=== PATIENT | female | born 1990 | race Caucasian/White ===

== ENCOUNTER 2019-02-22 16:57 | Emergency (ER) | payer SELFPAY ==
[~2019-02-22] VITALS: Ht 175.3 cm; Wt 88.5 kg
--- OUTSIDE RECORDS SUMMARY | 2019-02-22 17:03 | XMS REPORT ---
Author Author FE NAVARRETE [employer] Address Unknown Phone Unavailable Care Team Providers Care Shopping Centre Manager Name Role Phone FE NAVARRETE CP Unavailable Allergies, Adverse Reactions, Alerts Substance Reaction Event Type N.K.D.A. Info Not Available Non Drug Allergy Problems Problem Type Condition Code Onset Dates Condition Status Problem Other specified symptom associated with female genital organs 625.8 Active Problem Other, multiple, and unspecified sites, insect bite, nonvenomous, infected 919.5 Active Problem Leukorrhea, not specified as infective 623.5 Active Problem Unspecified otalgia 388.70 Active Problem Screening examination for venereal disease V74.5 Active Problem Encounter for dental examination Z01.20 Active Problem Screening for malignant neoplasm of the cervix V76.2 Active Problem Unspecified breast screening V76.10 Active Problem Unspecified vaginitis and vulvovaginitis 616.10 Active Problem Cellulitis and abscess of unspecified site 682.9 Active Assessment Encounter for dental examination Z01.20 Active Problem Dysfunction of Eustachian tube 381.81 Active Problem Allergic rhinitis, cause unspecified 477.9 Active Problem Urinary frequency 788.41 Active Medications No Known Medications Procedures Procedure Coding System Code Date INTRAORL-PERIAPICAL EA ADD FILM CPT-4 D0230 Sep 03, 2016 INTRAORL-PERIAPICAL EA ADD FILM CPT-4 D0230 Sep 03, 2016 INTRAORL-PERIAPICAL 1 FILM 84335 CPT-4 D0220 Sep 03, 2016 Unerupted Tooth CPT-4 C0028 Sep 03, 2016 Unerupted Tooth CPT-4 C0028 Sep 03, 2016 Unerupted Tooth CPT-4 C0028 Sep 03, 2016 PANORAMIC FILM SEE ALSO CODE 40850 CPT-4 D0330 Sep 03, 2016 BITEWINGS - FOUR FILMS CPT-4 D0274 Sep 03, 2016 Unerupted Tooth CPT-4 C0028 Sep 03, 2016 PROPHYLAXIS - ADULT CPT-4 D1110 Sep 03, 2016 Vital Signs Date/Time: Sep 03, 2016 Blood Pressure Diastolic 69 mmHg Blood Pressure Systolic 116 mmHg Results No Known Results Summary Purpose eClinicalWorks Submission
--- OUTSIDE RECORDS SUMMARY | 2019-02-22 17:03 | XMS REPORT ---
Author Author RYLAN ARORA [facility] Address [address] [place] [address] Care Team Providers Care Electrologist Name Role Phone RYLAN ARORA Unavailable PROBLEMS Type Condition ICD9-CM Code [id number] Code Onset Dates Condition Status SNOMED Code Problem Encounter for dental examination Z01.20 Active 969349709 ALLERGIES No Known Allergies SOCIAL HISTORY Never Assessed PLAN OF CARE Activity Details Follow Up 2 - 3 Days, prn Reason: VITAL SIGNS Height 70 in 2017-02-11 Weight 178.3 lbs 2017-02-11 Temperature 98.2 degrees Fahrenheit 2017-02-11 Heart Rate 78 bpm 2017-02-11 Respiratory Rate 20 2017-02-11 BMI 25.58 kg/m2 2017-02-11 Blood pressure systolic 110 mmHg 2017-02-11 Blood pressure diastolic 80 mmHg 2017-02-11 MEDICATIONS Medication Instructions Dosage Frequency Start Date End Date Duration Status Amoxicillin 500 mg Orally 3 times a day 1 capsule 8h Jan, Jan, 07 days Active RESULTS No Results PROCEDURES No Known procedures IMMUNIZATIONS No Known Immunizations
--- OUTSIDE RECORDS SUMMARY | 2019-02-22 17:03 | XMS REPORT ---
Author Author ARRON ARREDONDO Organization [employer] Address Unknown Phone Unavailable Care Team Providers Care Lieutenant/Deputy Name Role Phone ARRON ARREDONDO CP Unavailable Allergies No Known Allergies Problems Problem Type Condition ICD-9 Code Onset Dates Condition Status Problem Urinary frequency 788.41 Active Problem Leukorrhea, not specified as infective 623.5 Active Problem Other specified symptom associated with female genital organs 625.8 Active Problem Screening examination for venereal disease V74.5 Active Problem Unspecified vaginitis and vulvovaginitis 616.10 Active Problem Unspecified otalgia 388.70 Active Problem Unspecified breast screening V76.10 Active Problem Other, multiple, and unspecified sites, insect bite, nonvenomous, infected 919.5 Active Problem Cellulitis and abscess of unspecified site 682.9 Active Problem Screening for malignant neoplasm of the cervix V76.2 Active Assessment Dental examination V72.2 Active Problem Dysfunction of Eustachian tube 381.81 Active Problem Allergic rhinitis, cause unspecified 477.9 Active Medications No Known Medications Procedures Procedure Coding System Code Date INTRAORL-PERIAPICAL 1 FILM 66315 CPT-4 D0220 June 28, 2015 LTD ORAL EVALUATION - PROBLEM FOCUS CPT-4 D0140 June 28, 2015 Results No Known Results Summary Purpose eClinicalWorks Submission
--- OUTSIDE RECORDS SUMMARY | 2019-02-22 17:03 | XMS REPORT ---
Author Author TIM GRANT [facility] Address [address] [place] [address] Care Team Providers Care Wreath Machine Tender Name Role Phone TIM GRANT Unavailable PROBLEMS Unknown Problems ALLERGIES No Known Allergies ENCOUNTERS Encounter Location Date Diagnosis [facility] [id number] [place] [phone] Sep, Acute right-sided low back pain, with sciatica presence unspecified M54.5 [facility] [id number] [place] [address]- [address] Jan, Acute non-recurrent frontal sinusitis J01.10 [facility] [id number] [place] [phone] Sep, Encounter for dental examination Z01.20 [facility] [id number] [place] [phone] Jun, Dental examination V72.2 [facility] [id number] [place] [address]- 9779 Mar, [facility] [id number] [place] [address]59- 1225 Mar, [facility] [id number] [place] [address]02- 1221 Dec, [facility] [id number] [place] [address]- 1604 Dec, [facility] [id number] [place] [address] 18397- 7941 Dec, [facility] [id number] [place] [phone] Dec, [facility] [address] [id number] [place] [address] Dec, [facility] [place] [facility] [address] [id number] [place] [address] Dec, [facility] [place] [facility] [address] [id number] [place] [address] Nov, [facility] [place] [facility] [address] [id number] [place] [address] Nov, [facility] [place] [facility] [address] [id number] [place] [address] April, [facility] [place] [facility] [address] [id number] [place] [address] April, [facility] [place] [facility] [address] [id number] [place] [address] April, [facility] [place] [facility] [address] [id number] [place] [address] April, [facility] [place] [facility] [address] [id number] [place] [address] Mar, [facility] [place] [facility] [address] [id number] [place] [address] Mar, [facility] [place] [facility] [address] [id number] [place] [address] Sep, [facility] [place] [facility] [address] [id number] [place] [address] 24 Sep, 2013 [facility] [place] [facility] [address] [id number] [place] [address] 16 Sep, 2013 [facility] [place] [facility] [address] [id number] [place] [address] 13 Sep, 2013 [facility] [place] [facility] [address] [id number] [place] [address] 10 Sep, 2013 [facility] [place] [facility] [address] [id number], [place] [address] 10 Sep, 2013 [facility] [address] [facility] [id number] [place] [address] Aug, [facility] [address] [facility] [id number], [place] [address] Jun, [facility] [address] [facility] [id number], [place] [address] Jun, [facility] [address] [facility] [id number], [place] [address] Nov, [facility] [address] [facility] [id number] [place] [address] Nov, [facility] [address] [facility] [id number][place] [address] Oct, [facility] [address] [facility] [id number], [place] [address] Oct, [facility] [address] [facility] [id number], [place] [address] Sep, [facility] [address] [facility] [id number], [place] [address] Sep, [facility] [address] [facility] [id number], [place] [address] Sep, [facility] [address] [facility] [id number], [place] [address] 30 Jan, 2012 [facility] [address] [facility] [id number], [place] [address] 28 Jan, 2012 [facility] [address] [facility] [id number], [place] [address] 14 Jan, 2012 [facility] [address] [facility] [id number], [place] [address] 10 Jan, 2012 [facility] [address] [facility] [id number], [place] [address] 10 Jan, 2012 IMMUNIZATIONS No Known Immunizations SOCIAL HISTORY Never Assessed REASON FOR VISIT pain, back- States lower back pain on right side started yessusannah Marie RN PLAN OF CARE Activity Details Follow Up prn Reason: VITAL SIGNS Height 70 in 2018-10-01 Weight 193 lbs 2018-10-01 Temperature 98.0 degrees Fahrenheit 2018-10-01 Heart Rate 70 bpm 2018-10-01 Respiratory Rate 18 2018-10-01 BMI 27.69 kg/m2 2018-10-01 Blood pressure systolic 118 mmHg 2018-10-01 Blood pressure diastolic 74 mmHg 2018-10-01 MEDICATIONS Medication Instructions Dosage Frequency Start Date End Date Duration Status Ibuprofen 800 MG Orally Three times a day 1 tablet with food or milk as needed 8h Sep, Oct, 10 days Active Cyclobenzaprine HCl 10 mg Orally qhs 1 tablet as needed Sep, Oct, 10 days Active RESULTS Name Result Date Reference Range UA LONG DIP (IN HOUSE) 2018-10-01 Lot # [id number] Exp date 06/2019 Clarity clear Color yellow Odor none GLU negative HELLEN negative KET Trace SG >1.030 BLO negative pH 6.0 Protein Negative URO 0.2 NIT negativee KAVYA Negative Lot # Exp date PROCEDURES Procedure Date Ordered Result Body Site URINALYSIS, AUTO, W/O SCOPE Oct 01, 2018 INSTRUCTIONS MEDICATIONS ADMINISTERED No Known Medications MEDICAL (GENERAL) HISTORY Type Description Date Surgical History No Surgical history information
--- OUTSIDE RECORDS SUMMARY | 2019-02-22 17:03 | XMS REPORT | Continuity of Care Document ---
Author Author [facility] Address Unknown Phone Unavailable Allergies There is no data. Medications There is no data. Problems Date Dx Coded Attending Type Code Diagnosis Diagnosed By 02/09/2012 682.9 CELLULITIS AND ABSCESS OF UNSPECIFIED SITES 02/09/2012 MIKE MUNROE APRN R 682.9 CELLULITIS AND ABSCESS OF UNSPECIFIED SITES 02/09/2012 682.9 CELLULITIS AND ABSCESS OF UNSPECIFIED SITES 02/09/2012 PORTER MUNROE APRNIA R 682.9 CELLULITIS AND ABSCESS OF UNSPECIFIED SITES 02/09/2012 JAMA WILDE, SHY A 682.9 CELLULITIS AND ABSCESS OF UNSPECIFIED SITES 02/09/2012 OUMAR YUN APRNIDI A 682.9 CELLULITIS AND ABSCESS OF UNSPECIFIED SITES 02/09/2012 PORTER MUNROE APRNIA R 682.9 CELLULITIS AND ABSCESS OF UNSPECIFIED SITES 02/13/2012 919.5 INSECT BITE INFECTED 02/13/2012 PORTER MUNROE APRNIA R 919.5 INSECT BITE INFECTED 02/13/2012 919.5 INSECT BITE INFECTED 02/13/2012 PORTER MUNROE APRNIA R 919.5 INSECT BITE INFECTED 02/13/2012 JAMA APRN, SHY A 919.5 INSECT BITE INFECTED 02/13/2012 JAMAGUERRERO WILDE, SHY A 919.5 INSECT BITE INFECTED 02/13/2012 PORTER MUNROE APRNIA R 919.5 INSECT BITE INFECTED 09/05/2012 616.10 VAGINITIS AND VULVOVAGINITIS UNSPECIFIED 09/05/2012 V74.5 STD SCREEN 09/05/2012 PORTER MUNROE APRNIA R 616.10 VAGINITIS AND VULVOVAGINITIS UNSPECIFIED 09/05/2012 PORTER MUNROE APRNIA R V74.5 STD SCREEN 09/05/2012 616.10 VAGINITIS AND VULVOVAGINITIS UNSPECIFIED 09/05/2012 V74.5 STD SCREEN 09/05/2012 SHANEKA WILDE, MIKE R 616.10 VAGINITIS AND VULVOVAGINITIS UNSPECIFIED 09/05/2012 ZOË MUNROE APRNRICIA R V74.5 STD SCREEN 09/05/2012 JAMA CHANNELER, SHY A 616.10 VAGINITIS AND VULVOVAGINITIS UNSPECIFIED 09/05/2012 JAMA APRN, SHY A V74.5 STD SCREEN 09/05/2012 JAMA CHANNELER, SHY A 616.10 VAGINITIS AND VULVOVAGINITIS UNSPECIFIED 09/05/2012 JAMAGUERRERO WILDE, SHY A V74.5 STD SCREEN 09/05/2012 ZOË MUNROE APRNRICIA R 616.10 VAGINITIS AND VULVOVAGINITIS UNSPECIFIED 09/05/2012 ZOË MUNROE APRNRICIA R V74.5 STD SCREEN 11/28/2012 PORTER MUNROE APRNIA R 381.81 EUSTACHIAN TUBE DYSFUNCTION 11/28/2012 PORTER MUNROE APRNIA R 477.9 ALLERGIC RHINITIS 11/28/2012 381.81 EUSTACHIAN TUBE DYSFUNCTION 11/28/2012 477.9 ALLERGIC RHINITIS 11/28/2012 ZOË MUNROE APRNRICIA R 381.81 EUSTACHIAN TUBE DYSFUNCTION 11/28/2012 ZOË MUNROE APRNRICIA R 477.9 ALLERGIC RHINITIS 11/28/2012 JAMAOUMAR Chris APRNIDI A 381.81 EUSTACHIAN TUBE DYSFUNCTION 11/28/2012 JAMAOUMAR Chris APRNIDI A 477.9 ALLERGIC RHINITIS 11/28/2012 JAMADot WILDE SHY A 381.81 EUSTACHIAN TUBE DYSFUNCTION 11/28/2012 JAMADot WILDE SHY A 477.9 ALLERGIC RHINITIS 11/28/2012 SHANEKA WILDE MIKE R 381.81 EUSTACHIAN TUBE DYSFUNCTION 11/28/2012 ZOË MUNROE APRNRICIA R 477.9 ALLERGIC RHINITIS 06/03/2013 388.70 OTALGIA 06/03/2013 ZOË MUNROE APRNRICIA R 388.70 OTALGIA 06/03/2013 OUMAR YUN APRNIDI A 388.70 OTALGIA 06/03/2013 JAMA WILDE SHY A 388.70 OTALGIA 06/03/2013 SHANEKA CHANNELERMIKE Chris R 388.70 OTALGIA 08/21/2013 MIKE MUNROE APRN R 623.5 LEUKORRHEA NOT SPECIFIED INFECTIVE 08/21/2013 JAMA SUTTONNOUMARSHY A 623.5 LEUKORRHEA NOT SPECIFIED INFECTIVE 08/21/2013 JAMA SUTTONNOUMARSHY A 623.5 LEUKORRHEA NOT SPECIFIED INFECTIVE 08/21/2013 SHANEKA CHANNELERMIKE Chris R 623.5 LEUKORRHEA NOT SPECIFIED INFECTIVE 09/10/2013 JAMA SUTTONSHY Chris A V76.10 BREAST CANCER SCREENING 09/10/2013 JAMA SUTTONSHY Chris A V76.2 CERVICAL CANCER SCREENING (PAP SMEAR) 09/10/2013 JAMA CHANNELERSHY Chris A V76.10 BREAST CANCER SCREENING 09/10/2013 JAMA SUTTONSHY Chris A V76.2 CERVICAL CANCER SCREENING (PAP SMEAR) 09/10/2013 MIKE MUNROE APRN R V76.10 BREAST CANCER SCREENING 09/10/2013 MIKE MUNROE APRN R V76.2 CERVICAL CANCER SCREENING (PAP SMEAR) 04/22/2014 JAMA SUTTONNOUMARSHY A 625.8 OTHER SPECIFIED SYMPTOMS ASSOCIATED WITH FEMALE GENITAL ORGANS 04/22/2014 JAMA SUTTONDot SHY A 788.41 URINARY FREQUENCY 04/22/2014 MIKE MUNROE APRN R 625.8 OTHER SPECIFIED SYMPTOMS ASSOCIATED WITH FEMALE GENITAL ORGANS 04/22/2014 MIKE MUNROE APRN R 788.41 URINARY FREQUENCY Procedures Code Description [place] [address] CULTURE UROGENITAL 09/10/2013 41534 GC/CHLAM PROBE (STATE) 09/10/2013 95237 PAP SMEAR 09/10/2013 Q0091 PAP SMEAR OBTAIN SMEAR 09/10/2013 34770 TRICHOMONAS (IN-HOUSE) 09/10/2013 81721 UA W/ CULTURE IF INDICATED 04/22/2014 73205 TRICHOMONAS (IN-HOUSE) 12/08/2014 54622 CULTURE UROGENITAL 12/08/2014 49723 GC/CHLAM PROBE (STATE) 12/08/2014 Results There is no data. Encounters ACCT No. Visit Date/Time Discharge Status Pt. Type Provider Facility Loc./Unit Complaint [id number] 12/08/2014 15:29:00 12/08/2014 23:59:59 CLS Outpatient MIKE MUNROE APRN [id number] 04/22/2014 10:59:00 04/22/2014 23:59:59 CLS Outpatient SHY YUN APRN [id number] 09/10/2013 13:33:00 09/10/2013 23:59:59 CLS Outpatient SHY YUN APRN [id number] 08/21/2013 12:01:00 08/21/2013 23:59:59 CLS Outpatient MIKE MUNROE APRN [id number] 11/28/2012 16:29:00 11/28/2012 23:59:59 CLS Outpatient MIKE MUNROE APRN [id number] 09/05/2012 13:31:00 09/05/2012 23:59:59 CLS Outpatient [id number] 06/03/2013 14:03:00 Document Registration [id number] 02/02/2019 11:00:00 02/02/2019 23:59:59 CLS Outpatient MAURIZIO [facility]
--- NOTE | 2019-02-22 17:28 | ED GI ---
General Chief Complaint: Rect Problems Stated Complaint: BLOOD IN STOOL Source of Information: Patient Exam Limitations: No Limitations History of Present Illness Date Seen by Provider: Feb 22, 2019 Time Seen by Provider: 17:25 Initial Comments To ER from home per private vehicle with reports of chronic diarrhea for several months. She states her diarrhea is always water and only occasionally does she have a formed stool. Today she had some lower abdominal cramping and bright red blood in the toilet. She states that first, when she looked in the toilet it reminded her of when she's been on her menstrual cycle. She states the blood was very bright. She has no rectal pain now nor has she ever. Has no abdominal pain currently. No history of inflammatory bowel disease. Timing/Duration: 1-2 Days Severity/Quality: Moderate Location: Generalized Abdomen Radiation: No Radiation Activities at Onset: None Allergies and Home Medications Allergies Coded Allergies: No Known Drug Allergies (Unverified , 02/22/19) Patient Home Medication List Home Medication List Reviewed: Yes Review of Systems Review of Systems Constitutional: see HPI EENTM: No Symptoms Reported Respiratory: No Symptoms Reported Cardiovascular: No Symptoms Reported Gastrointestinal: See HPI, Abdominal Pain, Diarrhea, Rectal Bleeding Genitourinary: No Symptoms Reported Musculoskeletal: no symptoms reported Skin: no symptoms reported Psychiatric/Neurological: No Symptoms Reported Endocrine: No Symptoms Reported Hematologic/Lymphatic: No Symptoms Reported Past Macqsef-Doahdj-Civxjt Hx Patient Social History Recent Foreign Travel: No Contact w/Someone Who Travel: No Physical Exam Vital Signs Vital Signs - First Documented 02/22/19 17:24 Temp 98.9 Pulse 85 Resp 16 B/P (MAP) 128/80 (96) Pulse Ox 99 O2 Delivery Room Air Capillary Refill : Height/Weight/BMI Height: '" Weight: lbs. oz. kg; BMI Method: General Appearance: WD/WN, no apparent distress HEENT: PERRL/EOMI, normal ENT inspection Neck: non-tender, full range of motion Respiratory: no respiratory distress, no accessory muscle use Gastrointestinal: normal bowel sounds, non tender, soft Rectal: other (rectal exam done with when the RN at the bedside. There is no obvious external hemorrhoid, no fissure visualized. No visible blood at the rectum.) Genital/Rectal: normal rectal exam, normal rectal tone Extremities: normal range of motion, non-tender Neurologic/Psychiatric: alert, normal mood/affect, oriented x 3 Skin: normal color, warm/dry Progress/Results/Core Measures Results/Orders Lab Results Laboratory Tests Test 02/22/19 17:20 Range/Units White Blood Count 6.2 4.3-11.0 10^3/uL Red Blood Count 4.60 4.35-5.85 10^6/uL Hemoglobin 13.9 11.5-16.0 G/DL Hematocrit 41 35-52 % Mean Corpuscular Volume 89 80-99 FL Mean Corpuscular Hemoglobin 30 25-34 PG Mean Corpuscular Hemoglobin Concent 34 32-36 G/DL Red Cell Distribution Width 12.5 10.0-14.5 % Platelet Count 142 130-400 10^3/uL Mean Platelet Volume 12.3 H 7.4-10.4 FL Neutrophils (%) (Auto) 66 42-75 % Lymphocytes (%) (Auto) 26 12-44 % Monocytes (%) (Auto) 7 0-12 % Eosinophils (%) (Auto) 1 0-10 % Basophils (%) (Auto) 0 0-10 % Neutrophils # (Auto) 4.1 1.8-7.8 X 10^3 Lymphocytes # (Auto) 1.6 1.0-4.0 X 10^3 Monocytes # (Auto) 0.4 0.0-1.0 X 10^3 Eosinophils # (Auto) 0.0 0.0-0.3 10^3/uL Basophils # (Auto) 0.0 0.0-0.1 10^3/uL Erythrocyte Sedimentation Rate 5 0-20 MM/HR Sodium Level 139 135-145 MMOL/L Potassium Level 4.0 3.6-5.0 MMOL/L Chloride Level 107 98-107 MMOL/L Carbon Dioxide Level 24 21-32 MMOL/L Anion Gap 8 5-14 MMOL/L Blood Urea Nitrogen 9 7-18 MG/DL Creatinine 0.84 0.60-1.30 MG/DL Estimat Glomerular Filtration Rate > 60 BUN/Creatinine Ratio 11 Glucose Level 90 70-105 MG/DL Calcium Level 9.0 8.5-10.1 MG/DL Corrected Calcium 8.7 8.5-10.1 MG/DL Total Bilirubin 0.4 0.1-1.0 MG/DL Aspartate Amino Transf (AST/SGOT) 15 5-34 U/L Alanine Aminotransferase (ALT/SGPT) 10 0-55 U/L Alkaline Phosphatase 50 40-136 U/L C-Reactive Protein High Sensitivity 0.06 0.00-0.50 MG/DL Total Protein 7.3 6.4-8.2 GM/DL Albumin 4.4 3.2-4.5 GM/DL Serum Test, Qualitative NEGATIVE NEGATIVE My Orders Orders - CELIO OLSEN APRN Cbc With Automated Diff (02/22/19 17:18) Comprehensive Metabolic Panel (02/22/19 17:18) Erythrocyte Sedimentation Rate (02/22/19 17:18) Hs C Reactive Protein (02/22/19 17:18) Iv Heplock-Insert (Order) (02/22/19 17:18) Hcg,Qualitative Serum (02/22/19 17:18) Ct Abdomen/Pelvis W (02/22/19 17:18) Vital Signs/I&O 02/22/19 17:24 Temp 98.9 Pulse 85 Resp 16 B/P (MAP) 128/80 (96) Pulse Ox 99 O2 Delivery Room Air Diagnostic Imaging Diagonstic Imaging: CT Plain Films/CT/US/NM/MRI: abdomen, pelvis Comments NAME: SOFÍA SOLIS MED REC#: [id number] PT STATUS: REG ER : 1990 PHYSICIAN: CELIO OLSEN APRN ADMIT DATE: 02/22/19/ER Draft Date of Exam:02/22/19 CT ABDOMEN/PELVIS W PROCEDURE: CT abdomen and pelvis with contrast. TECHNIQUE: Multiple contiguous axial images were obtained through the abdomen and pelvis after administration of intravenous contrast. Auto Exposure Controls were utilized during the CT exam to meet ALARA standards for radiation dose reduction. INDICATION: Bloody stools. FINDINGS: There is long segment spasm with mild edema noted throughout the colon from mid transverse colon throughout to the rectum. There is a moderate amount of stool in the cecum and descending colon. The appendix is not dilated. There is some adjacent mesenteric edema noted. The small bowel is not distended. No evidence of thickening of small bowel. The stomach is not dilated. There is no free air or free fluid demonstrated. No adenopathy of pathologic size. There is a complex thickwalled multiseptated mass in the left adnexa, measuring 6 cm, which does show some enhancement of the wall. There is a small amount of fluid in the cul-de-sac. There is a round cyst in the right adnexa, measuring 1.6 cm without significant enhancement. The uterus is not enlarged. There is lymph node noted posteriorly in the perirectal region on the left, measuring 1.7 x 1.0 cm. No bony lesion is demonstrated. The liver appears normal. Gallbladder and bile ducts are normal. Pancreas and spleen are normal. The adrenal glands and kidneys are normal. There is normal enhancement of the abdominal organs and vessels. Vessels are normal. No bony abnormalities. IMPRESSION: 1. Long segment spasm with some thickening of the bowel wall from the mid transverse colon to the rectum with some adjacent mesenteric edema, likely representing colitis. No evidence of free air. 2. There is a complex pelvic mass with thick wall and septation in the left adnexa measuring upwards of 6 cm. This could well be ovarian in nature. Malignancy is definitely in the differential. Chronic inflammatory changes could not be excluded. There is an enlarged lymph node in the perirectal region just posterior to this mass, measuring 1.7 cm. There is a trace of free fluid in the cul-de-sac. 3. The appendix is normal. Dictated on workstation # [id number] Dict: 02/22/19 1849 Trans: 02/22/19 185 LOCATED WITHIN [facility] [id number] Interpreted by: JOZEF KHAN MD Electronically signed by: Departure Impression Primary Impression: Colitis Additional Impression: left adnexal mass Disposition: 01 HOME, SELF-CARE Condition: Stable Departure-Patient Inst. Decision time for Depature: 19:23 Referrals: MARY NELSON MD, MICHAEL S DO HIGGINBOTHAM, DENNIS G MD NO,LOCAL PHYSICIAN (PCP) Primary Care Physician JENNYFER GAMEZ DO Patient Instructions: NO INSTRUCTIONS GIVEN Add. Discharge Instructions: 1. Take the antibiotics and steroids as directed 2. Follow-up with one of the gynecologists listed to obtain an ultrasound of the structure on or around the left ovary. You will also need to follow up with primary care to ensure that your episodes of diarrhea and bloody stools resolve. Call your doctor tomorrow to make an appointment. All discharge instructions reviewed with patient and/or family. Voiced understanding. Scripts Metronidazole (Metronidazole) 500 Mg Tablet 500 MG PO TID, #21 TAB Prov: CELIO OLSEN APRN 02/22/19 Prednisone (Prednisone) 20 Mg Tab 40 MG PO DAILY, #8 EACH Prov: CELIO OLSEN APRN 02/22/19 Sulfamethoxazole/Trimethoprim (Bactrim Ds Tablet) 1 Each Tablet 1 EACH PO BID, #14 TAB Prov: CELIO OLSEN APRN 02/22/19 CELIO OLSEN APRN Feb 22, 2019 17:28
[2019-02-22 17:32] LABS: BASOPHILS % (AUTO) 0 % (0-10); EOSINOPHILS % (AUTO) 1 % (0-10); HEMATOCRIT 41 % (35-52); HEMOGLOBIN 13.9 G/DL (11.5-16.0); LYMPHOCYTES # (AUTO) 1.6 X 10^3 (1.0-4.0); LYMPHOCYTES % (AUTO) 26 % (12-44); MEAN CORPUSCULAR HEMOGLOBIN 30 PG (25-34); MEAN CORPUSCULAR HGB CONC 34 G/DL (32-36); MEAN CORPUSCULAR VOLUME 89 FL (80-99); MEAN PLATELET VOLUME 12.3 FL (7.4-10.4); MONOCYTES # (AUTO) 0.4 X 10^3 (0.0-1.0); MONOCYTES % (AUTO) 7 % (0-12); NEUTROPHILS # (AUTO) 4.1 X 10^3 (1.8-7.8); NEUTROPHILS % (AUTO) 66 % (42-75); PLATELET COUNT 142 10^3/uL (130-400); RED CELL DISTRIBUTION WIDTH 12.5 % (10.0-14.5); WHITE BLOOD COUNT 6.2 10^3/uL (4.3-11.0)
[2019-02-22 17:52] LABS: ALANINE AMINOTRANSFERASE 10 U/L (0-55); ALBUMIN 4.4 GM/DL (3.2-4.5); ALKALINE PHOSPHATASE 50 U/L (40-136); BILIRUBIN,TOTAL 0.4 MG/DL (0.1-1.0); BUN/CREATININE RATIO 11; CARBON DIOXIDE 24 MMOL/L (21-32); CHLORIDE 107 MMOL/L (98-107); CREATININE SERUM 0.84 MG/DL (0.60-1.30); GFR ESTIMATED > 60; GLUCOSE 90 MG/DL (70-105); SODIUM 139 MMOL/L (135-145); TOTAL PROTEIN 7.3 GM/DL (6.4-8.2)
[2019-02-22 18:22] LABS: ERYTHROCYTE SEDIMENTATION RATE 5 MM/HR (0-20)
--- NOTE | 2019-02-22 18:59 | Diagnostic Imaging Report ---
PROCEDURE: CT abdomen and pelvis with contrast. TECHNIQUE: Multiple contiguous axial images were obtained through the abdomen and pelvis after administration of intravenous contrast. Auto Exposure Controls were utilized during the CT exam to meet ALARA standards for radiation dose reduction. INDICATION: Bloody stools. FINDINGS: There is long segment spasm with mild edema noted throughout the colon from mid transverse colon throughout to the rectum. There is a moderate amount of stool in the cecum and descending colon. The appendix is not dilated. There is some adjacent mesenteric edema noted. The small bowel is not distended. No evidence of thickening of small bowel. The stomach is not dilated. There is no free air or free fluid demonstrated. No adenopathy of pathologic size. There is a complex thickwalled multiseptated mass in the left adnexa, measuring 6 cm, which does show some enhancement of the wall. There is a small amount of fluid in the cul-de-sac. There is a round cyst in the right adnexa, measuring 1.6 cm without significant enhancement. The uterus is not enlarged. There is lymph node noted posteriorly in the perirectal region on the left, measuring 1.7 x 1.0 cm. No bony lesion is demonstrated. The liver appears normal. Gallbladder and bile ducts are normal. Pancreas and spleen are normal. The adrenal glands and kidneys are normal. There is normal enhancement of the abdominal organs and vessels. Vessels are normal. No bony abnormalities. IMPRESSION: 1. Long segment spasm with some thickening of the bowel wall from the mid transverse colon to the rectum with some adjacent mesenteric edema, likely representing colitis. No evidence of free air. 2. There is a complex pelvic mass with thick wall and septation in the left adnexa measuring upwards of 6 cm. This could well be ovarian in nature. Malignancy is definitely in the differential. Chronic inflammatory changes could not be excluded. There is an enlarged lymph node in the perirectal region just posterior to this mass, measuring 1.7 cm. There is a trace of free fluid in the cul-de-sac. 3. The appendix is normal. Dictated by: Dictated on workstation # [id number]
[2019-02-22] MEDS ORDERED: PRD20T PO (19:25)
[2019-02-22] MEDS ORDERED: SULF1TAB35 PO (19:25)
[2019-02-22] MEDS ORDERED: METR-145 PO (19:25)
[2019-02-22] MEDS ORDERED: PANT40TA2 PO (19:34)
[2019-02-22] MEDS ORDERED: TRIM/SULFAMETH 160/800 (SEPTRA DS) TAB PO ONE (19:45)
[2019-02-22] MEDS ORDERED: metroNIDAZOLE 500 MG (FLAGYL) TAB PO ONE (19:45)
[2019-02-22] MEDS ORDERED: predniSONE 20 MG TAB PO ONE (19:45)
[2019-02-22 19:52] VITALS: BP 123/78
== END 2019-02-22 19:52 | disposition home or self-care (01) ==
LOC: EDUNIT# 16:57 → ER 16:59
DX: K52.9 Noninfective gastroenteritis and colitis, unspecified (principal); R19.09 Other intra-abdominal and pelvic swelling, mass and lump
CPT/HCPCS: 36415; 74177; 80053; 84703; 85025; 85652; 86141

== ENCOUNTER 2019-03-27 09:41 | Outpatient (CLI) | payer OTHER ==
[~2019-03-27] VITALS: Ht 175.3 cm; Wt 86.0 kg
[~2019-03-27 09:41] MED LIST: METR-145 PO; PANT40TA2 PO; PRD20T PO; SULF1TAB35 PO
[2019-03-27 09:54] VITALS: BP 111/71
[2019-03-27 10:27] LABS: BASOPHILS % (AUTO) 0 % (0-10); EOSINOPHILS # (AUTO) 0.1 10^3/uL (0.0-0.3); EOSINOPHILS % (AUTO) 1 % (0-10); HEMATOCRIT 42 % (35-52); LYMPHOCYTES # (AUTO) 1.5 X 10^3 (1.0-4.0); LYMPHOCYTES % (AUTO) 28 % (12-44); MEAN CORPUSCULAR HEMOGLOBIN 30 PG (25-34); MEAN CORPUSCULAR HGB CONC 34 G/DL (32-36); MEAN CORPUSCULAR VOLUME 91 FL (80-99); MONOCYTES # (AUTO) 0.5 X 10^3 (0.0-1.0); MONOCYTES % (AUTO) 10 % (0-12); NEUTROPHILS # (AUTO) 3.2 X 10^3 (1.8-7.8); NEUTROPHILS % (AUTO) 61 % (42-75); PLATELET COUNT 143 10^3/uL (130-400); RED CELL DISTRIBUTION WIDTH 12.3 % (10.0-14.5); WHITE BLOOD COUNT 5.3 10^3/uL (4.3-11.0)
== END 2019-03-27 12:00 | disposition home or self-care (01) ==
LOC: PREOP 09:41
PROVIDERS: ATTEND Obstetrics & Gynecology
DX: Z01.812 Encounter for preprocedural laboratory examination (principal); Z11.2 Encounter for screening for other bacterial diseases; R19.00 Intra-abdominal and pelvic swelling, mass and lump, unspecified site
CPT/HCPCS: 36415; 85025; 86850; 86900; 86901; 87081

== ENCOUNTER 2019-04-02 07:01 | Day surgery (SDC) | payer OTHER ==
[~2019-04-02] VITALS: Ht 175.3 cm; Wt 86.0 kg
[2019-04-02] VITALS (13 sets, daily range): BP systolic 21–138; BP diastolic 54–92
--- OUTSIDE RECORDS SUMMARY | 2019-04-02 07:05 | XMS REPORT ---
Author Author Migration, Doctor Organization [facility] Address Unknown Phone Unavailable Care Team Providers Care Gravel Screener Name Role Phone Migration, Doctor Unavailable Unavailable PROBLEMS Unknown Problems ALLERGIES No Information ENCOUNTERS Encounter Location Date Diagnosis [facility] [id number] [place] [address] 04 Jan, 2019 STD (sexually transmitted disease) A64 and Screen for STD ( sexually transmitted disease) Z11.3 [facility] [id number] [place] [id number] Sep, Acute right-sided low back pain, with sciatica presence unspecified M54.5 [facility] [id number] [place] [address]- 69[address] Jan, Acute non-recurrent frontal sinusitis J01.10 [facility] [id number] [place] [id number] Sep, Encounter for dental examination Z01.20 [facility] [id number] [place] [id number] Jun, Dental examination V72.2 [facility] [address] [address] Mar, [facility] [address] [place] [address]- [address]26 Mar, [facility] [address] [place] [address]1146- 30[address] Dec, [facility] [id number] [place] [address]- 46[address] Dec, [facility] [address] [address] Dec, [facility] [id number] [place] [address]- [address] Dec, [facility] [address] [id number] [place] [address] Dec, [facility] [place] [facility] [address] [id number] [place] [address]26 Dec, [facility] [place] [facility] [address] [id number] [place] [address]657 Nov, [facility] [place] [facility] [address] [id number] [place] [address] 16[address] Nov, [facility] [place] [facility] [address] [id number] [place] [address] April, [facility] [place] [facility] [address] [id number] [place] [address] 0186 April, [facility] [place] [facility] [address] [id number] [place] [address] 2629 April, [facility] [place] [facility] [address] [id number] [place] [address]123 April, [facility] [place] [facility] [address] [id number] [place] [address]245 Mar, [facility] [place] [facility] [address] [id number] [place] [address] 2634 Mar, [facility] [place] [facility] [address] [id number] [address] 24 Sep, 2013 [facility] [place] [facility] [address] [id number], [place] [address] 24 Sep, 2013 [facility] [place] [facility] [address] [id number] [place] [address]- 0969 16 Sep, 2013 [facility] [place] [facility] [address] [id number] [place] [address] 13 Sep, 2013 [facility] [place] [facility] [address] [id number] [place] [address]- 2441 10 Sep, 2013 [facility] [place] [facility] [address] [id number] [place] [address]- 2546 10 Sep, 2013 [facility] [place] [facility] [address] [id number] [place] [address]46 20 Aug, 2013 [facility] [place] [facility] [address] [id number] [place] [address] 2546 Jun, [facility] [place] [facility] [address] [id number] [place] [address] 2546 Jun, [facility] [place] [facility] [address] [id number] [place] [address]- 2546 Nov, [facility] [place] [facility] [address] [id number] [place] [address]- 2546 Nov, [facility] [place] [facility] [address] [id number] [place] [address] 2546 Oct, [facility] [place] [facility] [address] [id number] [place] [address] 2546 Oct, [facility] [place] [facility] [address] [id number] [place] [address]- [address]346 10 Sep, 2012 [facility] [place] [facility] [address] [id number] [place] [address]- 2546 07 Sep, 2012 [facility] [place] [facility] [address] [id number] [place] [address]- 2546 05 Sep, 2012 [facility] [place] [facility] [address] [id number] [place] [address]- 2546 30 Jan, 2012 [facility] [place] [facility] [address] [id number] [place] [address]- 2546 28 Jan, 2012 [facility] [place] [facility] [address] [id number] [place] [address]- 2546 14 Jan, 2012 [facility] [place] [facility] [address] [id number] [place] [address]- 2546 10 Jan, 2012 [facility] [place] [facility] [address] [id number] [place] [address] 8041 Jan, IMMUNIZATIONS No Known Immunizations SOCIAL HISTORY Never Assessed REASON FOR VISIT EMR-[facility] PLAN OF CARE VITAL SIGNS MEDICATIONS No Known Medications RESULTS No Results PROCEDURES No Known procedures INSTRUCTIONS MEDICATIONS ADMINISTERED No Known Medications MEDICAL (GENERAL) HISTORY Type Description Date Surgical History No Surgical history information
--- OUTSIDE RECORDS SUMMARY | 2019-04-02 07:05 | XMS REPORT ---
Author Author Migration, Doctor Organization [facility] Address Unknown Phone Unavailable Care Team Providers Care Hoist Mechanic Name Role Phone Migration, Doctor Unavailable Unavailable PROBLEMS Unknown Problems ALLERGIES No Information ENCOUNTERS Encounter Location Date Diagnosis [facility] [id number] [place] [address] 04 Jan, 2019 STD (sexually transmitted disease) A64 and Screen for STD ( sexually transmitted disease) Z11.3 [facility] [id number] [place], [place] [id number] Sep, Acute right-sided low back pain, with sciatica presence unspecified M54.5 [facility] [id number] [place] [address]- 2665 Jan, Acute non-recurrent frontal sinusitis J01.10 [facility] [address] [place] [address] [id number] Sep, Encounter for dental examination Z01.20 [facility] [id number] [place] [id number] Jun, Dental examination V72.2 [facility] [address], [place] [address] Mar, [facility] [id number] [place] [address]- 4734 Mar, [facility] [id number] [place] [address]16- 9068 Dec, [facility] [id number] [place] [address]10- 0957 Dec, [facility] [address], [place] [address] Dec, [facility] [id number] [place] [address] 15013- 1596 Dec, [facility] [address] [id number] [place] [address]- 8527 Dec, [facility] [place] [facility] [address] [id number] [place] [address]- 4375 Dec, [facility] [place] [facility] [address] [id number] [place] [address]- 4282 Nov, [facility] [place] [facility] [address] [id number] [place] [address]- 5018 Nov, [facility] [place] [facility] [address] [id number] [place] [address]- 8420 April, [facility] [place] [facility] [address] [id number] [place] [address]- 6554 April, [facility] [place] [facility] [address] [id number] [place] [address]- 1336 April, [facility] [place] [facility] [address] [id number] [place] [address]- 6320 April, [facility] [place] [facility] [address] [id number] [place] [address]- 4913 Mar, [facility] [place] [facility] [address] [id number] [place] [address]- 6394 Mar, [facility] [place] [facility] [address] [id number], [place] [address]- 8867 24 Sep, 2013 [facility] [place] [facility] [address] [id number], [place] [address]- 2736 24 Sep, 2013 [facility] [place] [facility] [address] [id number] [place] [address]- 4393 16 Sep, 2013 [facility] [place] [facility] [address] [id number] [place] [address]- 5659 13 Sep, 2013 [facility] [place] [facility] [address] [id number] [place] [address]- 8223 10 Sep, 2013 [facility] [place] [facility] [address] [id number] [place] [address]- 2546 10 Sep, 2013 [facility] [place] [facility] [address] [id number] [place] [address]- 2546 20 Aug, 2013 [facility] [place] [facility] [address] [id number] [place] [address]- 2546 Jun, [facility] [place] [facility] [address] [id number] [place] [address]- 2546 Jun, [facility] [place] [facility] [address] [id number] [place] [address]- 2546 Nov, [facility] [place] [facility] [address] [id number] [place] [address]- 2546 Nov, [facility] [place] [facility] [address] [id number] [place] [address]- 2546 Oct, [facility] [place] [facility] [address] [id number] [place] [address]- 2546 Oct, [facility] [place] [facility] [address] [id number] [place] [address]- 8956 10 Sep, 2012 [facility] [place] [facility] [address] [id number] [place] [address]- 2546 07 Sep, 2012 [facility] [place] [facility] [address] [id number] [place] [address]- 2546 05 Sep, 2012 [facility] [place] [facility] [address] [id number] [place] [address]- 2546 30 Jan, 2012 [facility] [place] [facility] [address] [id number] [place] [address]- 2546 28 Jan, 2012 [facility] [place] [facility] [address] [id number] [place] [address]- 2546 14 Jan, 2012 [facility] [place] [facility] [address] [id number] [place] [address]- 2546 10 Jan, 2012 [facility] [place] [facility] [address] [id number] [place] [address]- 2518 Jan, IMMUNIZATIONS No Known Immunizations SOCIAL HISTORY Never Assessed REASON FOR VISIT EMR-[facility] PLAN OF CARE VITAL SIGNS MEDICATIONS No Known Medications RESULTS No Results PROCEDURES No Known procedures INSTRUCTIONS MEDICATIONS ADMINISTERED No Known Medications MEDICAL (GENERAL) HISTORY Type Description Date Surgical History No Surgical history information
--- OUTSIDE RECORDS SUMMARY | 2019-04-02 07:05 | XMS REPORT ---
Author Author Migration, Doctor Organization [facility] Address Unknown Phone Unavailable Care Team Providers Care Security Patrol Driver Name Role Phone Migration, Doctor Unavailable Unavailable PROBLEMS Type Condition ICD9-CM Code HBM29-EZ Code Onset Dates Condition Status SNOMED Code Problem Adnexal mass N94.9 Active 368709641 Problem Gastroesophageal reflux disease, esophagitis presence not specified K21.9 Active [id number] ALLERGIES No Information ENCOUNTERS Encounter Location Date Diagnosis [place] [address] [address] [place] [id number] Mar, [place] [address] [address] Mar, Diarrhea of presumed infectious origin R19.7 [place] [address] [address] Jan, Gastroesophageal reflux disease, esophagitis presence not specified K21.9 ; Adnexal mass N94.9 and Colitis K52.9 [place] [address] [address] Jan, STD (sexually transmitted disease) A64 and Screen for STD ( sexually transmitted disease) Z11.3 [place] [address] [address] Sep, Acute right-sided low back pain, with sciatica presence unspecified M54.5 [place] [address] [address] Jan, Acute non-recurrent frontal sinusitis J01.10 [facility] [id number] [place] [id number] Sep, Encounter for dental examination Z01.20 [facility] [id number] [place] [id number] Jun, Dental examination V72.2 [facility] [place] [facility] [address] [id number] [place] [address] 14 Mar, 2015 [facility] [place] [facility] [address] [id number] [place] [address] Mar, [facility] [place] [facility] [address] [id number] [place] [address] Dec, [facility] [place] [facility] [address] [id number] [place] [address] Dec, [facility] [place] [facility] [address] [id number] [place] [address] Dec, [facility] [place] [facility] [address] [id number] [place] [address] Dec, [facility] [place] [facility] [address] [id number] [place] [address] Dec, [facility] [place] [facility] [address] [id number] [address] Dec, [facility] [place] [facility] [address] [id number] [place] [address] Nov, [facility] [place] [facility] [address] [id number] [place] [address] Nov, [facility] [place] [facility] [address] [id number] [address] April, [facility] [place] [facility] [address] [id number] [address] April, [facility] [place] [facility] [address] [id number] [place] [address] April, [facility] [place] [facility] [address] [id number] [place] [address] April, [facility] [place] [facility] [address] [id number] [place] [address] Mar, [facility] [place] [facility] [address] [id number] [place] [address] 15 Mar, 2014 [facility] [place] [facility] [address] [id number] [place] [address] 24 Sep, 2013 [facility] [place] [facility] [address] [id number] [place] 24 Sep, 2013 [facility] [place] [facility] [address] [id number] [place] [address] 16 Sep, 2013 [facility] [place] [facility] [address] [id number] [place] [address] 13 Sep, 2013 [facility] [place] [facility] [address] [id number] [place] [address] 10 Sep, 2013 [facility] [place] [facility] [address] [id number] [place] [address] 10 Sep, 2013 [facility] [place] [facility] [address] [id number] [place] [address] 20 Aug, 2013 [facility] [place] [facility] [address] [id number] [place] [address] Jun, [facility] [place] [facility] [address] [id number] [place] [address] Jun, [facility] [place] [facility] [address] [facility] [id number] [place] [address] Nov, [facility] [place] [facility] [address] [id number] [place] [address] Nov, [facility] [place] [facility] [address] [id number] [place] [address] Oct, [facility] [place] [facility] [address] [id number] [place] [address] Oct, [facility] [place] [facility] [address] [facility] [id number] [place] [address] Sep, [facility] [place] [facility] [address] [id number] [place] [address] Sep, [facility] [address] [facility] [id number] [address] Sep, [facility] [address] [place] [address] [id number] [address] 30 Jan, 2012 [facility] [id number] [address] Jan, [facility] [id number] [address] Jan, [facility] [id number] [address] Jan, [facility] [address] [id number] [address] Jan, IMMUNIZATIONS No Known Immunizations SOCIAL HISTORY Never Assessed REASON FOR VISIT [place] [place] VITAL SIGNS MEDICATIONS Medication Instructions Dosage Frequency Start Date End Date Duration Status Metronidazole 500 mg 1 tablet by Oral route 2 times per day for 7 days Sep, Active Acxoxtxo-Ynzwidpdm-FH 3.5-10,000-1 mg-unit/mL-% 2 drop by Otic route 4 times per day for 7 day(s) Jun, Active Keflex 500 mg take 1 capsule (500 mg) by oral route every 6 hours for 10 days Jan, Active RESULTS No Results PROCEDURES No Known procedures INSTRUCTIONS MEDICATIONS ADMINISTERED No Known Medications MEDICAL (GENERAL) HISTORY Type Description Date Surgical History No know Surgical history Hospitalization History ER for bloody stools 01/25/2019
--- OUTSIDE RECORDS SUMMARY | 2019-04-02 07:06 | XMS REPORT | Continuity of Care Document ---
Author Organization Unknown Address Unknown Allergies Active Description Code Type Severity Reaction Onset Reported/Identified Relationship to Patient Clinical Status Yes No Known Drug Allergies [id number] Drug Allergy Unknown N/A 03/27/2019 Medications There is no data. Problems Date [...] INFECTED 02/13/2012 919.5 INSECT BITE INFECTED 02/13/2012 MIKE MUNROE APRN R 919.5 INSECT BITE INFECTED 02/13/2012 JAMA APRN, SHY A 919.5 INSECT BITE INFECTED 02/13/2012 JAMA APRN, SHY A 919.5 INSECT BITE INFECTED 02/13/2012 MIKE MUNROE APRN R 919.5 INSECT BITE INFECTED 09/05/2012 616.10 VAGINITIS AND VULVOVAGINITIS UNSPECIFIED 09/05/2012 V74.5 STD SCREEN 09/05/2012 MIKE MUNROE APRN R 616.10 VAGINITIS AND VULVOVAGINITIS UNSPECIFIED 09/05/2012 MIKE MUNROE APRN R V74.5 STD SCREEN 09/05/2012 616.10 VAGINITIS AND VULVOVAGINITIS UNSPECIFIED 09/05/2012 V74.5 STD SCREEN 09/05/2012 PORTER MUNROE APRNIA R 616.10 VAGINITIS AND VULVOVAGINITIS UNSPECIFIED 09/05/2012 ZOË MUNROE APRNRICIA R V74.5 STD SCREEN 09/05/2012 JAMAOUMAR Chris APRNIDI A 616.10 VAGINITIS AND VULVOVAGINITIS UNSPECIFIED 09/05/2012 JAMAOUMAR Chris APRNIDI A V74.5 STD SCREEN 09/05/2012 JAMAOUMAR Chris APRNIDI A 616.10 VAGINITIS AND VULVOVAGINITIS UNSPECIFIED 09/05/2012 JAMASHY Chris APRN A V74.5 STD SCREEN 09/05/2012 MIKE MUNROE APRN R 616.10 VAGINITIS AND VULVOVAGINITIS UNSPECIFIED 09/05/2012 PORTER MUNROE APRNIA R V74.5 STD SCREEN 11/28/2012 PORTER MUNROE APRNIA R 381.81 EUSTACHIAN TUBE DYSFUNCTION 11/28/2012 PORTER MUNROE APRNIA R 477.9 ALLERGIC RHINITIS 11/28/2012 381.81 EUSTACHIAN TUBE DYSFUNCTION 11/28/2012 477.9 ALLERGIC RHINITIS 11/28/2012 PORTER MUNROE APRNIA R 381.81 EUSTACHIAN TUBE DYSFUNCTION 11/28/2012 PORTER MUNROE APRNIA R 477.9 ALLERGIC RHINITIS 11/28/2012 JAMASHY Chris APRN A 381.81 EUSTACHIAN TUBE DYSFUNCTION 11/28/2012 JAMASHY Chris APRN A 477.9 ALLERGIC RHINITIS 11/28/2012 JAMAOUMAR Chris APRNIDI A 381.81 EUSTACHIAN TUBE DYSFUNCTION 11/28/2012 JAMASHY Chris APRN A 477.9 ALLERGIC RHINITIS 11/28/2012 PORTER MUNROE APRNIA R 381.81 EUSTACHIAN TUBE DYSFUNCTION 11/28/2012 PORTER MUNROE APRNIA R 477.9 ALLERGIC RHINITIS 06/03/2013 388.70 OTALGIA 06/03/2013 PORTER MUNROE APRNIA R 388.70 OTALGIA 06/03/2013 JAMASHY Chris APRN A 388.70 OTALGIA 06/03/2013 OUMAR YUN APRNIDI A 388.70 OTALGIA 06/03/2013 MIKE MUNROE APRN R 388.70 OTALGIA 08/21/2013 SHANEKA PLASTIC INJECTION MOLD MAKERMIKE Chris R 623.5 LEUKORRHEA NOT SPECIFIED INFECTIVE 08/21/2013 JAMA SUTTONNOUMARSHY A 623.5 LEUKORRHEA NOT SPECIFIED INFECTIVE 08/21/2013 JAMA USTTONNOUMARSHY A 623.5 LEUKORRHEA NOT SPECIFIED INFECTIVE 08/21/2013 SHANEKA PLASTIC INJECTION MOLD MAKERMIKE Chris R 623.5 LEUKORRHEA NOT SPECIFIED INFECTIVE 09/10/2013 JAMA SUTTONNOUMARSHY A V76.10 BREAST CANCER SCREENING 09/10/2013 JAMA SUTTONDot SHY A V76.2 CERVICAL CANCER SCREENING (PAP SMEAR) 09/10/2013 JAMA SUTTONDot SHY A V76.10 BREAST CANCER SCREENING 09/10/2013 JAMA SHY WILDE A V76.2 CERVICAL CANCER SCREENING (PAP SMEAR) [...] MIKE MUNROE APRN R 788.41 URINARY FREQUENCY 02/24/2019 CELIO OLSEN APRN Ot K52.9 NONINFECTIVE GASTROENTERITIS AND COLITIS 02/24/2019 CELIO OLSEN APRN Ot R19.09 OTHER INTRA-ABDOMINAL AND PELVIC SWELLIN 02/24/2019 CELIO OLSEN APRN Ot R19.7 DIARRHEA, UNSPECIFIED Procedures Code Description [place] [address] CULTURE UROGENITAL 09/10/2013 51104 GC/CHLAM PROBE (STATE) 09/10/2013 66856 PAP SMEAR 09/10/2013 Q0091 PAP SMEAR OBTAIN SMEAR 09/10/2013 61686 TRICHOMONAS (IN-HOUSE) 09/10/2013 38323 UA W/ CULTURE IF INDICATED 04/22/2014 03931 TRICHOMONAS (IN-HOUSE) 12/08/2014 03964 CULTURE UROGENITAL 12/08/2014 57851 GC/CHLAM PROBE (STATE) 12/08/2014 Results Test Result Range HSV 1/2 IGG,TYPE SPECIFIC AB HERPESELECT - 02/02/19 11:46 HSV 1 IGG, TYPE SPECIFIC AB 26.30 index NRG HSV 2 IGG, TYPE SPECIFIC AB <0.90 index NRG Complete blood count (CBC) with automated white blood cell (WBC) differential - 02/22/19 17:20 Blood leukocytes automated count (number/volume) 6.2 10*3/uL 4.3-11.0 Blood erythrocytes automated count (number/volume) 4.60 10*6/uL 4.35-5.85 Venous blood hemoglobin measurement (mass/volume) 13.9 g/dL 11.5-16.0 Blood hematocrit (volume fraction) 41 % 35-52 Automated erythrocyte mean corpuscular volume 89 [foz_us] 80-99 Automated erythrocyte mean corpuscular hemoglobin (mass per erythrocyte) 30 pg 25-34 Automated erythrocyte mean corpuscular hemoglobin concentration measurement ( mass/volume) 34 g/dL 32-36 Automated erythrocyte distribution width ratio 12.5 % 10.0-14.5 Automated blood platelet count (count/volume) 142 10*3/uL 130-400 Automated blood platelet mean volume measurement 12.3 [foz_us] 7.4-10.4 Automated blood neutrophils/100 leukocytes 66 % 42-75 Automated blood lymphocytes/100 leukocytes 26 % 12-44 Blood monocytes/100 leukocytes 7 % 0-12 Automated blood eosinophils/100 leukocytes 1 % 0-10 Automated blood basophils/100 leukocytes 0 % 0-10 Blood neutrophils automated count (number/volume) 4.1 10*3 1.8-7.8 Blood lymphocytes automated count (number/volume) 1.6 10*3 1.0-4.0 Blood monocytes automated count (number/volume) 0.4 10*3 0.0-1.0 Automated eosinophil count 0.0 10*3/uL 0.0-0.3 Automated blood basophil count (count/volume) 0.0 10*3/uL 0.0-0.1 Serum or plasma choriogonadotropin ( test) detection - 02/22/19 17:20 Serum or plasma choriogonadotropin ( test) detection NEGATIVE NEGATIVE Comprehensive metabolic panel - 02/22/19 17:20 Serum or plasma sodium measurement (moles/volume) 139 mmol/L 135-145 Serum or plasma potassium measurement (moles/volume) 4.0 mmol/L 3.6-5.0 Serum or plasma chloride measurement (moles/volume) 107 mmol/L 98-107 Carbon dioxide 24 mmol/L 21-32 Serum or plasma anion gap determination (moles/volume) 8 mmol/L 5-14 Serum or plasma urea nitrogen measurement (mass/volume) 9 mg/dL 7-18 Serum or plasma creatinine measurement (mass/volume) 0.84 mg/dL 0.60-1.30 Serum or plasma urea nitrogen/creatinine mass ratio 11 NRG Serum or plasma creatinine measurement with calculation of estimated glomerular filtration rate > NRG Serum or plasma glucose measurement (mass/volume) 90 mg/dL 70-105 Serum or plasma calcium measurement (mass/volume) 9.0 mg/dL 8.5-10.1 Serum or plasma total bilirubin measurement (mass/volume) 0.4 mg/dL 0.1-1.0 Serum or plasma alkaline phosphatase measurement (enzymatic activity/volume) 50 U/L 40-136 Serum or plasma aspartate aminotransferase measurement (enzymatic activity/ volume) 15 U/L 5-34 Serum or plasma alanine aminotransferase measurement (enzymatic activity/volume ) 10 U/L 0-55 Serum or plasma protein measurement (mass/volume) 7.3 g/dL 6.4-8.2 Serum or plasma albumin measurement (mass/volume) 4.4 g/dL 3.2-4.5 CALCIUM CORRECTED 8.7 mg/dL 8.5-10.1 Serum or plasma C reactive protein measurement (mass/volume) - 02/22/19 17:20 Serum or plasma C reactive protein measurement (mass/volume) 0.06 mg /dL 0.00-0.50 Erythrocyte sedimentation rate by westergren method - 02/22/19 17:20 Erythrocyte sedimentation rate by westergren method 5 mm 0-20 CULTURE, STOOL - 03/10/19 09:34 SALMONELLA AND SHIGELLA, CULTURE SEE NOTE NRG STOOL (C-DIFF) - 03/10/19 09:34 CLOSTRIDIUM DIFFICILE TOXIN/GDH W/REFL TO PCR SEE NOTE NRG Complete blood count (CBC) with automated white blood cell (WBC) differential - 03/27/19 10:15 Blood leukocytes automated count (number/volume) 5.3 10*3/uL 4.3-11.0 Blood erythrocytes automated count (number/volume) 4.62 10*6/uL 4.35-5.85 Venous blood hemoglobin measurement (mass/volume) 14.0 g/dL 11.5-16.0 Blood hematocrit (volume fraction) 42 % 35-52 Automated erythrocyte mean corpuscular volume 91 [foz_us] 80-99 Automated erythrocyte mean corpuscular hemoglobin (mass per erythrocyte) 30 pg 25-34 Automated erythrocyte mean corpuscular hemoglobin concentration measurement ( mass/volume) 34 g/dL 32-36 Automated erythrocyte distribution width ratio 12.3 % 10.0-14.5 Automated blood platelet count (count/volume) 143 10*3/uL 130-400 Automated blood platelet mean volume measurement 12.0 [foz_us] 7.4-10.4 Automated blood neutrophils/100 leukocytes 61 % 42-75 Automated blood lymphocytes/100 leukocytes 28 % 12-44 Blood monocytes/100 leukocytes 10 % 0-12 Automated blood eosinophils/100 leukocytes 1 % 0-10 Automated blood basophils/100 leukocytes 0 % 0-10 Blood neutrophils automated count (number/volume) 3.2 10*3 1.8-7.8 Blood lymphocytes automated count (number/volume) 1.5 10*3 1.0-4.0 Blood monocytes automated count (number/volume) 0.5 10*3 0.0-1.0 Automated eosinophil count 0.1 10*3/uL 0.0-0.3 Automated blood basophil count (count/volume) 0.0 10*3/uL 0.0-0.1 Blood type T Indirect antibody screen panel - 03/27/19 10:15 ABO+Rh group AP NRG Blood group antibody screen NEGATIVE NRG Encounters ACCT No. Visit Date/Time Discharge Status Pt. Type Provider Facility Loc./Unit Complaint [id number] 12/08/2014 15:29:00 12/08/2014 23:59:59 CLS Outpatient MIKE MUNROE APRN [id number] 04/22/2014 10:59:00 04/22/2014 23:59:59 CLS Outpatient SHY YUN APRN [id number] 09/10/2013 13:33:00 09/10/2013 23:59:59 CLS Outpatient JAMA WILDESHY [id number] 08/21/2013 12:01:00 08/21/2013 23:59:59 CLS Outpatient SHANEKA MIKE WILDE [id number] 11/28/2012 16:29:00 11/28/2012 23:59:59 CLS Outpatient MIKE MUNROE APRN [id number] 09/05/2012 13:31:00 09/05/2012 23:59:59 CLS Outpatient [id number] 06/03/2013 14:03:00 Document Registration [id number] 03/10/2019 09:20:00 03/10/2019 23:59:59 CLS Outpatient MAURIZIO CHEEMA [facility] [place] [id number] 03/10/2019 09:20:00 Document Registration [id number] 02/02/2019 11:00:00 Document Registration [id number] 03/27/2019 09:41:00 03/27/2019 12:00:00 DIS Outpatient KHANH SHAH DO [facility] PREOP DIAGNOSTIC LAPAROSCOPY; REMOVAL PELVIC MASS [id number] 02/22/2019 16:59:00 02/22/2019 19:52:00 DIS Outpatient CELIO OLSEN APRN [facility] ER BLOOD IN STOOL [id number] 04/02/2019 08:45:00 PEN Preadmit KHANH SHAH DO [facility] PELVIC CYSTIC MASS
[2019-04-02] MEDS ORDERED: ceFAZolin INJECTION 1,000 MG in WATER (STERILE) FOR INJECTION 10 ML IV ONE (07:15)
--- NOTE | 2019-04-02 07:24 | Progress Note-Pre Operative ---
Pre-Operative Progress Note H&P Reviewed The H&P was reviewed, patient examined and no changes noted. Date Seen by Provider: April 02, 2019 Time Seen by Provider: 07:15 Date H&P Reviewed: April 02, 2019 Time H&P Reviewed: 07:15 Pre-Operative Diagnosis: Pelviuc mass KHANH SHAH DO April 02, 2019 07:24
[2019-04-02] MEDS ORDERED: SEVOFLURANE (ULTANE) 15 ML INHAL SOLN ONE ×3 (07:28→09:25)
[2019-04-02] MEDS ORDERED: fentaNYL INJECTION 100 MCG/2 ML AMP ONE ×2 (07:28→09:17)
[2019-04-02] MEDS ORDERED: MIDAZOLAM 2 MG/2 ML (VERSED) VIAL ONE (07:28)
[2019-04-02] MEDS ORDERED: BUPIVACAINE 0.25% 30 ML (SENSORCAINE) VIAL ONE (07:28)
[2019-04-02] MEDS ORDERED: DEXAMETHASONE 10 MG/ML (DECADRON) 1 ML VIAL ONE (07:28)
[2019-04-02] MEDS ORDERED: ONDANSETRON 4 MG/2 ML (SDV) Z0FRAN ONE ×2 (07:28→09:51)
[2019-04-02] MEDS ORDERED: GLYCOPYRROLATE 0.2 MG/ML (ROBINUL) 2 ML VIAL ONE ×2 (07:28→09:15)
[2019-04-02] MEDS ORDERED: FAMOTIDINE 20MG/2ML IV (PEPCID) ONE (07:28)
[2019-04-02] MEDS ORDERED: LIDOCAINE PF 2% 5 ML (XYLOCAINE) VIAL ONE (07:28)
[2019-04-02] MEDS ORDERED: proPOfol 200 MG/20 ML (DIPRIVAN) VIAL IV ONE (07:28)
[2019-04-02] MEDS ORDERED: ROCURONIUM 10 MG/ML 5 ML SYRINGE IV ONE (07:28)
[2019-04-02] MEDS ORDERED: NEOSTIGMINE 1 MG/ML 5 ML SYRINGE ONE ×2 (07:28→09:15)
[2019-04-02] MEDS ORDERED: FAMOTIDINE 20MG/2ML IV (PEPCID) IV ONE (07:30)
[2019-04-02] MEDS: LACTATED RINGERS 1,000 ML IV PRN ×2 (07:38→08:32)
[2019-04-02] MEDS ORDERED: D5 LR IV SOLUTION 1,000 ML IV SCH (07:55)
--- NOTE | 2019-04-02 07:58 | Discharge Inst-Women's Service ---
Discharge Inst-Women's Serv Depart Medication/Instructions New, Converted or Re-Newed RX: RX on Chart Consults/Follow Up Additional Follow Up: Yes Orders/Referrals Dr. Sun in 7-10 days Activity Activity: Activity as Tolerated NO SMOKING: NO SMOKING Nothing Inside Vagina: No Douching, No Newsoms, No Tampons Diet Discharge Diet: No Restrictions Symptoms to Report to : Bleeding Excessive, Pain Increased, Fever Over 101 Degrees F, Vaginal Bleeding Increase, Questions/Concerns For Any Problems or Questions: Contact Your Physician Skin/Wound Care Infection Signs and Symptoms: Increased Redness, Foul Odor of Wound, Increased Drainage, Skin Itchy or Has a Rash, Increased Swelling, Temperature Above 101 F Operative Area Clean and Dry: Keep Incision Clean/Dry Stitches/[place]/Dermabond: Dermabond, Care of Stitches Bathing Instructions: KHANH Milligan DO April 02, 2019 07:58
[2019-04-02] MEDS ORDERED: IBUP-1773 PO (07:59)
[2019-04-02] MEDS ORDERED: ACHD5005 PO (07:59)
[2019-04-02] MEDS ORDERED: HYDROcodone/APAP 5 MG/325 MG (LORTAB) TAB PO PRN (08:00)
[2019-04-02] MEDS ORDERED: KETOROLAC 30 MG/ML VIAL IVP ONE (08:00)
[2019-04-02] MEDS ORDERED: ONDANSETRON 4 MG/2 ML (SDV) Z0FRAN IVP PRN ×2 (08:00→09:45)
[2019-04-02] MEDS ORDERED: HYDROmorphone 2 MG/ML VIAL (DILAUDID) IV ONE (09:45)
[2019-04-02] MEDS ORDERED: MEPERIDINE (DEMEROL) INJ 50 MG/ML IVP ONE (09:45)
[2019-04-02] MEDS ORDERED: morphine INJ 10 MG/ML 1ML (SYR OR VIAL) IVP ONE (09:45)
[2019-04-02] MEDS ORDERED: KETOROLAC 30 MG/ML VIAL ONE (09:50)
[2019-04-02] MEDS ORDERED: morphine INJ 10 MG/ML 1ML (SYR OR VIAL) ONE (09:51)
--- NOTE | 2019-04-02 12:09 | Anesthesia-General Post-Op ---
General Patient Condition Mental Status/LOC: Same as Preop Cardiovascular: Satisfactory Nausea/Vomiting: Absent Respiratory: Satisfactory Pain: Controlled Complications: Absent Post Op Complications Complications None Follow Up Care/Instructions Patient Instructions None needed. Anesthesia/Patient Condition Patient Condition Patient is doing well, no complaints, stable vital signs, no apparent adverse anesthesia problems. No complications reported per nursing. RADHA BRAMBILA CRNA April 02, 2019 12:09
--- NOTE | 2019-04-02 14:53 | OPERATIVE REPORT ---
DATE OF SERVICE: PREOPERATIVE DIAGNOSES: 1. A 28-year-old female with chronic pelvic pain. 2. Pelvic mass. POSTOPERATIVE DIAGNOSES: 1. A 28-year-old female with chronic pelvic pain. 2. Pelvic mass. 3. 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 SURGEON: Gonzales Shah DO PROCEDURE: Laparoscopic bilateral evacuation of ovarian endometriomas with left salpingo-oophorectomy. ANESTHESIA: General endotracheal. ESTIMATED BLOOD LOSS: Minimal. URINE OUTPUT: 500 mL clear at the end of the procedure. FLUIDS: 1200 mL of lactated Ringer solution. FINDINGS: Grossly normal external female genitalia and normal appearing cervix with peritoneal visualization of diffuse endometriosis including the vesicouterine peritoneum, the posterior cul-de-sac, bilateral ovarian fossa, bilateral ovaries, bilateral ovarian endometriomas. There is even endometriosis involving the descending, sigmoid colon and what appears to be also the posterior cul-de-sac rectum. SPECIMENS SENT: Left ovary and tube. INDICATIONS FOR THE PROCEDURE: This is a 28-year-old female, who has a consultation in my office for finding of a pelvic mass on ultrasound and CT. The patient reported some diffuse pains and very painful periods. She has put off seen a physician about this due to the nature of the pain associated with her menses. However, she says that she has been dealing with this for several years. I discussed with the patient removal of this pelvic mass as it is significant size approximately 5 x 6 cm on ultrasound. Risks of the procedure were discussed with the patient in detail including laparoscopic management and possibility of laparotomy, possibility for postoperative complications, possible need for reoperation and even . The third thing was discussed with the patient in detail, consent was obtained in the preoperative area and the patient was taken to the operating room. DESCRIPTION OF PROCEDURE: Once in the operating room, general anesthesia was found to be adequate, placed in dorsal lithotomy position, prepped and draped in normal sterile fashion. Bee catheter was in place using sterile technique and a timeout was performed. We then placed a weighted speculum in the patient's vagina. A right angle retractor was used to visualize cervix, which was grasped at 12 o'clock position using a long Allis clamp. I then gently sounded the uterine cavity and depth was found to be 8 cm. I placed a FlowMetric uterine manipulator to a depth of 8 cm and deployed the balloon endometrial cavity in advance of the manipulator around the cervix. At that point, I am able to appreciate excellent manipulation on bimanual exam. I then removed all the other instruments from the patient's vagina and performed a change of gloves, took my attention to the abdomen where infraumbilically I infiltrated this area using 0.25% Marcaine. I made a 5 mm incision and directed the Veress needle through the incision until intraperitoneal placement was confirmed using saline drop test. I proceeded with insufflation using CO2 gas and opening pressure of 5 mmHg noted. I proceeded to maximum pressure of 15 mmHg, at which point I removed the Veress needle and introduced a 5 mm blunt laparoscopic trocar. Once this was in place, I am able to confirm intraperitoneal placement using the laparoscope. A brief scan of the upper abdominal anatomy appears grossly normal. There was no evidence of damage on my entry site. I then had the patient placed in steep Trendelenburg and I am able to visualize all of my findings as described above. The ovaries are stuck to the ovarian fossa and pelvic sidewall. Therefore, I have to place a second trocar. This is a 12 mm trocar suprapubically. The skin was infiltrated using 0.25% Marcaine. Incision was made with a knife and trocars placed under direct visualization of the laparoscope. This trocar site was used to introduce a blunt dissector, which I attempted to bluntly dissect the ovaries off of the pelvic sidewalls, which incidentally causes rupture of the ovarian cyst, which spills out a dark brown substance consistent with endometriosis and endometrioma collection in the ovary. There is a smaller one on the right side. There is a very large one on the left side. The pelvis was copiously irrigated with over 1.5 liters of normal saline, at which point I decided for removal of the left ovary due to its distortion from the previous endometrioma. I place a third trocar. This is in the left lower quadrant, 5 mm trocar. Skin is infiltrated using 0.25% Marcaine. An incision was made with the knife. Once the trocar was placed under direct visualization of the laparoscope, I am able to introduce a 5 mm LigaSure, which I isolate the infundibulopelvic ligament, bipolar cauterized and transected using the LigaSure. I took this down the fallopian tube in the mesosalpinx and to the medial connection point of the uteroovarian ligament, at which point I amputate the ovary and fallopian tube at this point removing the left tube and ovary. I then introduced an Endopouch bag through the 12 mm port. I am able to remove the specimen through the 12 mm port. After which, I copiously irrigated the pelvis again using normal saline. There was no active bleeding noted from any of my dissection planes. The 12 mm trocar is removed and I closed the fascia at this site using a Garrett-Poppy and 0 Vicryl suture. Once this was done, the other two trocars were removed under direct visualization of the laparoscope. The infraumbilical trocar was left in place to release insufflation and once this was removed, we closed the 5 mm trocar site using 4-0 Monocryl interrupted subcuticular stitches and Dermabond was placed over these. The larger site is closed using 4-0 Monocryl in a running subcuticular. Dermabond was placed over this incision site as well. Band-Aids were placed over the incisions. A KrGrapeworder uterine manipulator and Bee catheter was removed. The patient tolerated the procedure well and went to the recovery area in stable condition. Lap and sponge count was correct at the end of the procedure. Instrument count was correct as well. Job ID: [id number] DocumentID: [id number] Dictated Date: 04/02/2019 09:53:38 Banquet Steward Date: 04/02/2019 14:52:23 Dictated By: GONZALES SHAH DO [email or web address]
== END 2019-04-02 12:40 | disposition home or self-care (01) ==
LOC: SDC 07:01
PROVIDERS: ATTEND Obstetrics & Gynecology
DX: N80.1 Endometriosis of ovary (principal); N80.3 Endometriosis of pelvic peritoneum; N80.5 Endometriosis of intestine; N83.12 Corpus luteum cyst of left ovary; R19.07 Generalized intra-abdominal and pelvic swelling, mass and lump; K21.9 Gastro-esophageal reflux disease without esophagitis; Z87.891 Personal history of nicotine dependence
CPT/HCPCS: 36415; 84703; 86850; 86900; 86901; 88305; 94664

== ENCOUNTER 2019-04-28 05:37 | Outpatient (CLI) | payer OTHER ==
[~2019-04-28] VITALS: Ht 175.3 cm; Wt 86.0 kg
[~2019-04-28 05:37] MED LIST changes: +ACHD5005 PO; +IBUP-1773 PO
== END 2019-04-28 13:14 | disposition home or self-care (01) ==
LOC: PREOP 05:37
PROVIDERS: ATTEND Surgery
DX: Z01.818 Encounter for other preprocedural examination (principal)

== ENCOUNTER 2019-05-05 09:11 | Day surgery (SDC) | payer OTHER ==
[~2019-05-05] VITALS: Ht 175.3 cm; Wt 86.0 kg
--- OUTSIDE RECORDS SUMMARY | 2019-05-05 09:14 | XMS REPORT ---
Author Author Migration, Doctor Organization [facility] Address Unknown Phone Unavailable Care Team Providers Care Enrollment Consultant Name Role Phone Migration, Doctor Unavailable Unavailable PROBLEMS Type Condition ICD9-CM Code PWN34-SB Code Onset Dates Condition Status SNOMED Code Problem Adnexal mass N94.9 Active 456183577 Problem Gastroesophageal reflux disease, esophagitis presence not specified K21.9 Active [id number] ALLERGIES No Information ENCOUNTERS Encounter Location Date Diagnosis [address] [address] Mar, Diarrhea of presumed infectious origin R19.[address] [address] Mar, Diarrhea of presumed infectious origin R19.7 [place] [address] [address] Jan, Gastroesophageal reflux disease, esophagitis presence not specified K21.9 ; Adnexal mass N94.9 and Colitis K52.9 [place] [id number] [place] [address] Jan, STD (sexually transmitted disease) A64 and Screen for STD (sexually transmitted disease) Z11.3 [place] [id number] [place] [address] Sep, Acute right-sided low back pain, with sciatica presence unspecified M54.[address] [address] Jan, Acute non-recurrent frontal sinusitis J01.10 [facility] [address] [place] [id number] [place] [id number] Sep, 2016 Encounter for dental examination Z01.20 [facility] [address] [id number] Jun, Dental examination V72.2 [facility] [address] [id number] [place] [address] 14 Mar, 2015 [facility] [address] [id number] [place] [address] 13 Mar, 2015 [facility] [address] [id number] [place] [address] Dec, [facility] [address] [id number] [place] [address] 13 Dec, 2014 [facility] [address] [id number] [place] [address] Dec, [facility] [address] [id number] [place] [address] Dec, [facility] [address] [id number], [place] [address] Dec, [facility] [address] [id number], [place] [address] Dec, [facility] [address] [id number] [place] [address] Nov, [facility] [address] [facility] [id number], [place] [address] Nov, [facility] [address] [id number] [place] [address] April, [facility] [address] [id number], [place] [address] April, [facility] [place] [facility] [address] [id number] [place] [address] April, [facility] [place] [facility] [address] [id number] [place] [address] April, [facility] [address] [id number], [place] [address] Mar, [facility] [place] [facility] [address] [id number] [place] [address] 15 Mar, 2014 [facility] [place] [facility] [address] [id number] [place] [address] 24 Sep, 2013 [facility] [place] [facility] [address] [id number] [place] [address] 24 Sep, 2013 [facility] [place] [facility] [address] [id number] [place] [address] 16 Sep, 2013 [facility] [place] [facility] [address] [id number] [place] [address] Sep, [facility] [place] [facility] [address] [id number] [place] [address] Sep, [facility] [place] [facility] [address] [id number] [place] [address] Sep, [facility] [place] [facility] [address] [id number] [place] [address] Aug, [facility] [place] [facility] [address] [id number] [place] [address] Jun, [facility] [place] [facility] [address] [id number] [place] [address] Jun, [facility] [place] [facility] [address] [id number] [place] [address] Nov, [facility] [place] [facility] [address] [id number] [place] [address] Nov, [facility] [place] [facility] [address] [id number] [place] [address] Oct, [facility] [place] [facility] [address] [id number] [place] [address] Oct, [facility] [place] [facility] [address] [id number] [place] [address] Sep, [facility] [place] [facility] [address] [id number] [place] [address] 07 Sep, 2012 [facility] [address] [facility] [id number], [place] [address] 05 Sep, 2012 [facility] [address], [place] [address] 30 Jan, 2012 [facility] [address], [place] [address] 28 Jan, 2012 [facility] [address], [place] [address] 14 Jan, 2012 [facility] [address], [place] [address] 10 Jan, 2012 [facility] [address], [place] [address] 10 Jan, 2012 IMMUNIZATIONS No Known Immunizations SOCIAL HISTORY Never Assessed REASON FOR VISIT EMR-[facility] PLAN OF CARE VITAL SIGNS MEDICATIONS Unknown Medications RESULTS No Results PROCEDURES No Known procedures INSTRUCTIONS MEDICATIONS ADMINISTERED No Known Medications MEDICAL (GENERAL) HISTORY Type Description Date Surgical History No know Surgical history Hospitalization History ER for bloody stools 01/25/2019
[2019-05-05] MEDS ORDERED: LACTATED RINGERS 1,000 ML IV STA (09:15)
[2019-05-05] MEDS ORDERED: LACTATED RINGERS 1,000 ML IV ONE (09:15)
[2019-05-05] MEDS ORDERED: HURRICAINE EXT TUBE (BENZOCAINE) XX PRN (09:15)
--- OUTSIDE RECORDS SUMMARY | 2019-05-05 09:15 | XMS REPORT | Continuity of Care Document ---
Author Organization Unknown Address Unknown Allergies Active Description Code Type Severity Reaction Onset Reported/Identified Relationship to Patient Clinical Status Yes No Known Drug Allergies [id number] Drug Allergy Unknown N/A 04/28/2019 Medications There is no data. Problems Date [...] TUBE DYSFUNCTION 11/28/2012 477.9 ALLERGIC RHINITIS 11/28/2012 PORTRE MUNROE APRNIA R 381.81 EUSTACHIAN TUBE DYSFUNCTION [...] PORTER MUNROE APRNIA R 388.70 OTALGIA 06/03/2013 JAMA EDGE FINISHER, SHY A 388.70 OTALGIA 06/03/2013 OUMAR YUN APRNIDI A 388.70 OTALGIA 06/03/2013 SHANEKA EDGE FINISHERZOË ChrisMIKE R 388.70 OTALGIA 08/21/2013 SHANEKA EDGE FINISHERPORTER ChrisIA R 623.5 LEUKORRHEA NOT SPECIFIED INFECTIVE 08/21/2013 JAMA SUTTONNOUMARSHY A 623.5 LEUKORRHEA NOT SPECIFIED INFECTIVE 08/21/2013 JAMA EDGE FINISHEROUMARSHY A 623.5 LEUKORRHEA NOT SPECIFIED INFECTIVE 08/21/2013 MUNROE EDGE FINISHERPORTER ChrisIA R 623.5 LEUKORRHEA NOT SPECIFIED INFECTIVE 09/10/2013 JAMA SUTTONNOUMARSHY A V76.10 BREAST CANCER SCREENING 09/10/2013 JAMA SUTTONNOUMARSHY A V76.2 CERVICAL CANCER SCREENING (PAP SMEAR) 09/10/2013 JAMA SUTTONDot SHY A V76.10 BREAST CANCER SCREENING 09/10/2013 JAMA SUTTONDot SHY A V76.2 CERVICAL CANCER SCREENING (PAP SMEAR) 09/10/2013 PORTER MUNROE APRNIA R V76.10 BREAST CANCER SCREENING 09/10/2013 PORTER MUNROE APRNIA R V76.2 CERVICAL CANCER SCREENING (PAP SMEAR) 04/22/2014 JAMA SUTTONNOUMARSHY A 625.8 OTHER SPECIFIED SYMPTOMS ASSOCIATED WITH FEMALE GENITAL ORGANS 04/22/2014 JAMA SUTTONNOUMARSHY A 788.41 URINARY FREQUENCY 04/22/2014 PORTER MUNROE APRNIA R 625.8 OTHER SPECIFIED SYMPTOMS ASSOCIATED WITH FEMALE GENITAL ORGANS 04/22/2014 PORTER MUNROE APRNIA R 788.41 URINARY FREQUENCY 02/22/2019 CELIO OLSEN APRN Ot K52.9 NONINFECTIVE GASTROENTERITIS AND COLITIS 02/22/2019 CELIO OLSEN APRN Ot R19.09 OTHER INTRA-ABDOMINAL AND PELVIC SWELLIN 02/22/2019 CELIO OLSEN APRN Ot R19.7 DIARRHEA, UNSPECIFIED 02/24/2019 CELIO OLSEN APRN Ot K52.9 NONINFECTIVE GASTROENTERITIS AND COLITIS 02/24/2019 CELIO OLSEN APRN Ot R19.09 OTHER INTRA-ABDOMINAL AND PELVIC SWELLIN 02/24/2019 CELIO OLSEN APRN Ot R19.7 DIARRHEA, UNSPECIFIED 03/27/2019 MIHAELAECH DO, KHANH Soliz Ot R19.00 INTRA-ABD AND PELVIC SWELLING, MASS AND 03/27/2019 FENECH DO, KHANH S Ot Z01.812 ENCOUNTER FOR PREPROCEDURAL LABORATORY E 03/27/2019 FENECH DO, KHANH S Ot Z11.2 ENCOUNTER FOR SCREENING FOR OTHER BACTER 03/30/2019 ALYSSA DO, KHANH Soliz Ot R19.00 INTRA-ABD AND PELVIC SWELLING, MASS AND 03/30/2019 FENECH DO, KHANH Soliz Ot Z01.812 ENCOUNTER FOR PREPROCEDURAL LABORATORY E 03/30/2019 MIHAELAECH DO, KHANH Soliz Ot Z11.2 ENCOUNTER FOR SCREENING FOR OTHER BACTER 04/02/2019 ALYSSA NESBITTKHANH S Ot K21.9 GASTRO-ESOPHAGEAL REFLUX DISEASE WITHOUT 04/02/2019 FENECH DOKHANH S Ot N80.1 ENDOMETRIOSIS OF OVARY 04/02/2019 MIHAELAECH DOKHANH Ot N80.3 ENDOMETRIOSIS OF PELVIC PERITONEUM 04/02/2019 MIHAELAECH DOKHANH Ot N80.5 ENDOMETRIOSIS OF INTESTINE 04/02/2019 [facility] KHANH Soliz Ot N83.12 CORPUS LUTEUM CYST OF LEFT OVARY 04/02/2019 [facility] DO, KHANH S Ot R19.07 GENERALIZED INTRA-ABD AND PELVIC SWELLIN 04/02/2019 [facility], KHANH S Ot Z87.891 PERSONAL HISTORY OF NICOTINE DEPENDENCE 04/08/2019 ALYSSA DOKHANH S Ot K21.9 GASTRO-ESOPHAGEAL REFLUX DISEASE WITHOUT 04/08/2019 FENECH DO, KHANH S Ot N80.1 ENDOMETRIOSIS OF OVARY 04/08/2019 [place]HAEL[place] DO, KHANH S Ot N80.3 ENDOMETRIOSIS OF PELVIC PERITONEUM 04/08/2019 [place] DO, KHANH S Ot N80.5 ENDOMETRIOSIS OF INTESTINE 04/08/2019 FENECH DO, KHANH S Ot N83.12 CORPUS LUTEUM CYST OF LEFT OVARY 04/08/2019 [place]HAEL[place] DO, KHANH S Ot R19.07 GENERALIZED INTRA-ABD AND PELVIC SWELLIN 04/08/2019 MIHAELAECH DO, KHANH S Ot Z87.891 PERSONAL HISTORY OF NICOTINE DEPENDENCE 04/29/2019 CARLIE NAVA DO Ot Z01.818 ENCOUNTER FOR OTHER PREPROCEDURAL EXAMIN Procedures Code Description [place] [address] CULTURE UROGENITAL 09/10/2013 05932 GC/CHLAM PROBE (STATE) 09/10/2013 02495 PAP SMEAR 09/10/2013 Q0091 PAP SMEAR OBTAIN SMEAR 09/10/2013 75862 TRICHOMONAS (IN-HOUSE) 09/10/2013 49787 UA W/ CULTURE IF INDICATED 04/22/2014 88189 TRICHOMONAS (IN-HOUSE) 12/08/2014 11194 CULTURE UROGENITAL 12/08/2014 36966 GC/CHLAM PROBE (STATE) 12/08/2014 Results Test Result [...] Automated erythrocyte mean corpuscular hemoglobin concentration measurement (mass/volume) 34 g/dL 32-36 Automated erythrocyte distribution width ratio 12.5 % 10.0- 14.5 Automated blood platelet count (count/volume) 142 10*3/uL [...] Blood monocytes automated count (number/volume) 0.4 10*3 0.0- 1.0 Automated eosinophil count 0.0 10*3/uL 0.0-0.3 Automated [...] Serum or plasma aspartate aminotransferase measurement (enzymatic activity/volume) 15 U/L 5-34 Serum or plasma alanine aminotransferase measurement (enzymatic activity/volume) 10 U/L 0-55 Serum or plasma protein measurement (mass/volume) 7.3 g/dL 6.4-8.2 Serum or plasma albumin measurement (mass/volume) 4.4 g/dL 3.2-4.5 CALCIUM CORRECTED 8.7 mg/dL 8.5-10.1 Serum or plasma C reactive protein measurement (mass/volume) - 02/22/19 17:20 Serum or plasma C reactive protein measurement (mass/volume) 0.06 mg/dL 0.00-0.50 Erythrocyte sedimentation rate by westergren method - 02/22/19 17:20 Erythrocyte sedimentation rate by westergren method 5 mm 0- 20 CULTURE, STOOL - 03/10/19 09:34 SALMONELLA AND [...] Automated erythrocyte mean corpuscular hemoglobin concentration measurement (mass/volume) 34 g/dL 32-36 Automated erythrocyte distribution width ratio 12.3 % 10.0- 14.5 Automated blood platelet count (count/volume) 143 10*3/uL [...] Blood monocytes automated count (number/volume) 0.5 10*3 0.0- 1.0 Automated eosinophil count 0.1 10*3/uL 0.0-0.3 Automated blood basophil count (count/volume) 0.0 10*3/uL 0.0-0.1 Blood type T Indirect antibody screen panel - 03/27/19 10:15 ABO+Rh group AP NRG Blood group antibody screen NEGATIVE NRG Methicillin resistant Staphylococcus aureus (MRSA) screening culture - 03/27/19 10:15 Methicillin resistant Staphylococcus aureus (MRSA) screening culture NEG NRG Blood type T Indirect antibody screen panel - 04/02/19 07:14 ABO+Rh group AP NRG Transfusion band number [id number] NRG Blood group antibody screen NEGATIVE NRG Serum or plasma choriogonadotropin ( test) detection - 04/02/19 07:40 Serum or plasma choriogonadotropin ( test) detection NEGATIVE NEGATIVE Encounters ACCT No. Visit Date/Time Discharge Status Pt. Type Provider Facility Loc./Unit Complaint [id number] 12/08/2014 15:29:00 12/08/2014 23:59:59 CLS Outpatient MIKE MUNROE APRN [id number] 04/22/2014 10:59:00 04/22/2014 23:59:59 CLS Outpatient SHY YUN APRN [id number] 09/10/2013 13:33:00 09/10/2013 23:59:59 CLS Outpatient SHY YUN APRN [id number] 08/21/2013 12:01:00 08/21/2013 23:59:59 CLS Outpatient MIKE MUNROE APRN [id number] 11/28/2012 16:29:00 11/28/2012 23:59:59 CLS Outpatient MIKE MUNROE APRN [id number] 09/05/2012 13:31:00 09/05/2012 23:59:59 CLS Outpatient [id number] 06/03/2013 14:03:00 Document Registration [id number] 03/10/2019 09:20:00 03/10/2019 23:59:59 CLS Outpatient MAURIZIO CHEEMA LAC [facility] [place] [id number] 03/10/2019 09:20:00 Document Registration [id number] 02/02/2019 11:00:00 Document Registration [id number] 04/28/2019 05:37:00 04/28/2019 13:14:00 DIS Outpatient CARLIE NAVA DO [facility] PREOP COLONOSCOPY/EGD [id number] 04/02/2019 07:01:00 04/02/2019 12:40:00 [facility] [id number] 03/27/2019 09:41:00 03/27/2019 12:00:00 DIS Outpatient KHANH SHAH DO [facility] PREOP DIAGNOSTIC LAPAROSCOPY; REMOVAL PELVIC MASS [id number] 02/22/2019 16:59:00 02/22/2019 19:52:00 DIS Emergency CELIO OLSEN APRN [facility] ER BLOOD IN STOOL [id number] 05/05/2019 10:20:00 PEN Preadmit CARLIE NAVA DO [facility] ENDO BLOOD IN STOOLS/GERD
[2019-05-05 09:20] VITALS: BP 107/71
[2019-05-05] MEDS ORDERED: PROPOFOL INJECTION 50 ML IV ONE ×2 (11:58→12:23)
[2019-05-05] MEDS ORDERED: MIDAZOLAM 2 MG/2 ML (VERSED) VIAL ONE ×2 (11:58→12:12)
[2019-05-05] MEDS ORDERED: LIDOCAINE PF 2% 5 ML (XYLOCAINE) VIAL ONE (11:59)
[2019-05-05] MEDS ORDERED: HURRICAINE EXT TUBE (BENZOCAINE) ONE (12:11)
--- NOTE | 2019-05-05 12:40 | Progress Note-Post Operative ---
Post-Operative Progess Note Surgeon (s)/Maintenance Supervisor Electrical (s) Surgeon CARLIE NAVA DO Maintenance Supervisor Electrical: na Pre-Operative Diagnosis GERD, Blood in stool, diarrhea, internal/external hemorrhoids Post-Operative Diagnosis slight gastritis, normal colon Procedure & Operative Findings Date of Procedure 05/05/19 Procedure Performed/Findings egd c biopsies, colonoscopy Anesthesia Type per jewel hole finish opener Estimated Blood Loss Estimated blood loss (mL): na Specimens/Packing Specimens Removed antrum, ge CARLIE NAVA DO May 05, 2019 12:40
--- NOTE | 2019-05-05 12:44 | Discharge Inst-Simple/Standard ---
Discharge Inst-Standard Patient Instructions/Follow Up Plan of Care/Instructions/FU: 2 weeks Aldo Activity as Tolerated: Yes Discharge Diet: Regular Diet (high fiber) CARLIE NAVA DO May 05, 2019 12:44
[2019-05-05 13:05] VITALS: BP 117/79
[2019-05-05 13:40] VITALS: BP 119/77
[2019-05-05 13:45] VITALS: BP 119/77
--- NOTE | 2019-05-05 14:27 | Anesthesia-General Post-Op ---
MAC Patient Condition Mental Status/LOC: Same as Preop Cardiovascular: Satisfactory Nausea/Vomiting: Absent Respiratory: Satisfactory Pain: Controlled Complications: Absent Post Op Complications Complications None Follow Up Care/Instructions Patient Instructions None needed. Anesthesiology Discharge Order Discharge Order Patient is doing well, no complaints, stable vital signs, no apparent adverse anesthesia problems. No complications reported per nursing. KOTA LOERA CRNA May 05, 2019 14:27
--- NOTE | 2019-05-05 19:08 | OPERATIVE REPORT ---
DATE OF SERVICE: 05/05/2019 PREOPERATIVE DIAGNOSES: Gastroesophageal reflux disease, blood in stool, diarrhea. POSTOPERATIVE DIAGNOSES: Slight gastritis, normal colon with internal and external hemorrhoids. PROCEDURE: EGD with biopsies, colonoscopy. SURGEON: Carlie Carlson DO ANESTHESIA: Per TAFFY PULLER. ESTIMATED BLOOD LOSS: None. COMPLICATIONS: None. INDICATIONS: The patient is a 28-year-old female with GERD, blood in stool, diarrhea. She understands risks and benefits of procedure to evaluate for causes. She understands risks and benefits and wishes to proceed. Consent was signed and on the chart. DESCRIPTION OF PROCEDURE: The patient was taken to the endoscopy suite, placed in left lateral recumbent position. Timeout was performed. Scope was inserted into the mouth, down the esophagus, stomach and into the duodenum. There are no polyps, mass or ulcerations in the duodenum. Scope was slowly retracted back into the stomach where it was further insufflated. Some slight gastritis present. Biopsy of the antrum was obtained. Scope was retroflexed noting no other pathology. Scope was returned to its normal position, slowly withdrawn to the distal esophagus. Biopsy of the antrum was obtained. The scope was then slowly retracted back into the distal esophagus, which had some slight erythematous changes. Biopsy of GE junction was obtained. There were no polyps, masses or ulcerations. Scope was slowly retracted back to completely removed, noting no other pathology. Digital rectal exam was performed demonstrating some internal and external hemorrhoids. Scope was inserted into the rectum and advanced all the way to the cecum with minimal difficulty. Prep was adequate. Scope was then slowly retracted back. There were no polyps, masses or ulcerations in the cecum, ascending, transverse, descending and sigmoid colon. The bowel mucosa had normal appearance. Once in the rectum, scope was retroflexed, just noting the internal hemorrhoids. Scope was returned to its normal position, slowly withdrawn until completely removed. The patient tolerated procedure well without any complications. She was taken to recovery room in stable condition. RECOMMENDATIONS: The patient will follow up in the office in 2 weeks. She will need a repeat colonoscopy per normal screening guidelines unless she has any change in condition, she should be reevaluated. She continues to have bleeding we would recommend repeating. Likely source is the hemorrhoids of the bleeding. Job ID: [id number] DocumentID: [id number] Dictated Date: 05/05/2019 12:43:21 Hydraulic Lift Operator Date: 05/05/2019 19:08:20 Dictated By: CARLIE CARLSON DO
== END 2019-05-05 13:45 | disposition home or self-care (01) ==
LOC: ENDO 09:11
PROVIDERS: ATTEND Surgery
DX: R19.7 Diarrhea, unspecified (principal); K64.8 Other hemorrhoids; K29.70 Gastritis, unspecified, without bleeding; K21.9 Gastro-esophageal reflux disease without esophagitis
CPT/HCPCS: 84703

== ENCOUNTER 2021-08-01 12:29 | Emergency (ER) | payer SELFPAY ==
[~2021-08-01] VITALS: Ht 175.2 cm; Wt 75.0 kg
[~2021-08-01 12:29] MED LIST changes: -SULF1TAB35 PO; +SULF1TAB38 PO
[2021-08-01 12:45] VITALS: BP 132/88
--- NOTE | 2021-08-01 13:20 | ED EENT ---
History of Present Illness General Stated Complaint: SOB,SORE THROAT, CONGESTION,DIARRHEA Source: patient Exam Limitations: no limitations History of Present Illness Date Seen by Provider: Aug 01, 2021 Time Seen by Provider: 12:55 Initial Comments Patient to the ER by private conveyance with chief complaint of nasal congestion sore throat general malaise and fatigue [place]. She had an episode of coughing this morning while at work and coughed up a little bloody sputum which had her concerned so she decided to come to the ER. She does not have a personal history of blood clots. She denies any chest pain or shortness of air. No family history of blood clots. No history of DVTs or significant trauma/surgery. She has not been bedridden. She has not been tested for Covid nor has she had a vaccine. She is not on control. She has a history of endometriosis followed by Dr. Sun and follows with [facility] for primary care. No fevers or chills. No nausea vomiting diarrhea or constipation. She does have some irritable bowel and GERD and is being worked up by GI doctor at [place]. Patient states her daughter is getting over RSV Allergies and Home Medications Allergies Coded Allergies: No Known Drug Allergies (Unverified , 04/28/19) Home Medications Pantoprazole Sodium 40 Mg Tablet.dr, 40 MG PO DAILY Prescribed by: CELIO OLSEN on 02/22/191933 Patient Home Medication List Home Medication List Reviewed: Yes Review of Systems Review of Systems Constitutional: No chills, No diaphoresis Eyes: Denies Blindness, Denies Drainage Ears: Denies Dizziness, Denies Pain Nose: denies clots; congestion; denies epistaxis, denies bloody discharge Mouth: denies clots, denies pain, denies swelling Musculoskeletal: No back pain, No joint pain All Other Systems Reviewed Negative Unless Noted: Yes Past Hrbqvpl-Ntxwgk-Aixasi Hx Patient Social History Tobacco Use?: No Use of E-Cig and/or Vaping dev: No Substance use?: Yes Substance type: Marijuana Substance frequency: Several times a month Alcohol Use?: No Seasonal Allergies Seasonal Allergies: Yes Past Medical History Surgeries: Yes Oophorectomy Respiratory: No Cardiac: No Neurological: No Reproductive Disorders: Yes Female Reproductive Disorders: Endometriosis, Polycystic Ovarian Dis HIV/AIDS: No Genitourinary: Yes ( CHILD) Bladder Infection, UTI-Chronic Gastrointestinal: Yes Gastroesophageal Reflux, Chronic Diarrhea Musculoskeletal: Yes Chronic Back Pain Endocrine: No HEENT: Yes Loss of Vision: Bilateral Hearing Impairment: Denies Cancer: No Psychosocial: No Integumentary: No Blood Disorders: No Adverse Reaction/Blood Tranf: No (N/A) Physical Exam Vital Signs Vital Signs - First Documented 08/01/21 12:45 Temp 36.9 Pulse 76 Resp 18 B/P (MAP) 132/88 (103) Pulse Ox 100 O2 Delivery Room Air Height, Weight, BMI Height: 5'9.00" Weight: 189lbs. 8.0oz. 85.145352io; 27.00 BMI Method:Estimated General Appearance: WD/WN, no apparent distress Eyes: bilateral eye normal inspection, bilateral eye PERRL, bilateral eye EOMI Ears: bilateral ear auricle normal, bilateral ear canal normal, bilateral ear TM normal Nose: normal inspection; No sinus tenderness; other (Minor rhinorrhea clear) Mouth/Throat: tonsillar exudate, tonsillar swelling, other (Faint retropharyngeal erythema and injection) Neck: non-tender, full range of motion, supple, normal inspection Cardiovascular: normal peripheral pulses, regular rate, rhythm Respiratory: lungs clear, normal breath sounds, no respiratory distress, no accessory muscle use Neurologic/Psychiatric: alert, normal mood/affect, oriented x 3 Skin: normal color, warm/dry Progress/Results/Core Measures Results/Orders Lab Results Laboratory Tests Test 08/01/21 13:08 Range/Units Influenza Type A (RT-PCR) Not Detected Not Detecte Influenza Type B (RT-PCR) Not Detected Not Detecte SARS-CoV-2 RNA (RT-PCR) Not Detected Not Detecte Group A Streptococcus Screen NEGATIVE NEGATIVE Vital Signs/I&O 08/01/21 12:45 Temp 36.9 Pulse 76 Resp 18 B/P (MAP) 132/88 (103) Pulse Ox 100 O2 Delivery Room Air Progress Progress Note : Time: 13:16 Progress Note Upper respiratory symptoms with a little blood-tinged sputum on a cough. She has no adventitious vital signs or breath sounds. Patient relates some concerns about a large, hard bruise on the front of her leg that she got over about a month ago. Patient has no evidence of any leg swelling pain or erythema. We related to her that it was just a bruise color it is unlikely to be intravascular and therefore presented no risk for PE and it has already resolved by the time of her presentation today. We did discuss her risk for PE and did offer to do some blood tests to try and rule it out but explained to her that if it was unable to rule that out then we would recommend a CT angiogram. We discussed the risks, benefits and alternatives to imaging versus observation as we feel that her risk factor is very low and that a D-dimer is likely to give way too many false positives. After using a clinically supported decision- making process the patient opted out of getting a D-dimer today. Well score: 1.0 points. Low risk group: 1.3% chance of PE in an ED population. PERC Score: 1 criteria. Covid swab, strep swab and influenza. Suspect she has a viral or bacterial pharyngitis and the friable nature may have caused little blood-tinged sputum. Return precautions were discussed. Departure Impression Primary Impression: GERD (gastroesophageal reflux disease) Qualified Codes: K21.01 - Gastro-esophageal reflux disease with esophagitis, with bleeding Additional Impression: Hemoptysis Disposition: HOME, SELF-CARE Condition: Stable Departure-Patient Inst. Decision time for Depature: 14:50 Referrals: NO,LOCAL PHYSICIAN (PCP/Family) Primary Care Physician Patient Instructions: Acid Reflux and Gastroesophageal Reflux Disease in Adults Add. Discharge Instructions: Drink plenty of fluids. Vapor rubs such as Vicks or Mentholatum may be helpful if you have irritated nose and throat that is causing blood-tinged sputum. If the blood-tinged sputum is coming from your esophagus from an erosive esophagitis caused by GERD then doubling your Prilosec to 20 mg twice a day may be helpful. Carafate 1 tablet half an hour before meals and at bedtime may also help protect the lining of your esophagus and stomach. Keep your follow-up appointments with the GI doctor Salt water gargles can be helpful for sore throat. Scripts Sucralfate (Carafate) 1 Gm Tablet 1 GM PO QIDACHS for 14 Days, #56 TAB 0 Refills Prov: MARÍA SABA 08/01/21 Omeprazole Magnesium (Prilosec Otc) 20 Mg Tablet.dr 20 MG PO BID, #60 TAB 0 Refills Prov: MARÍA SABA 08/01/21 Work/School Note: Work Release Form Date Seen in the Emergency Department: Aug 01, 2021 Return to Work: Aug 02, 2021 Restrictions: No Restrictions MARÍA SABA Aug 01, 2021 13:20
[2021-08-01] MEDS ORDERED: SUCR1TAB36 PO (14:53)
[2021-08-01] MEDS ORDERED: OMEP20TA33 PO (14:53)
== END 2021-08-01 14:54 | disposition home or self-care (01) ==
LOC: EDUNIT# 12:29 → ER 12:31
DX: K21.9 Gastro-esophageal reflux disease without esophagitis (principal); R04.2 Hemoptysis; Z20.822 Contact with and (suspected) exposure to COVID-19
CPT/HCPCS: 87430; 87636; 99284